=== PATIENT | male | born 1950 | race Caucasian/White ===

== ENCOUNTER 2019-07-18 11:18 | Inpatient (IN) | payer OTHER ==
[2019-07-18] MEDS ORDERED: ACETAMINOPHEN 1000 MG/100 ML VIAL (NON FORMULARY) IVPB ONE (12:32)
[2019-07-18] MEDS ORDERED: SODIUM CHLORIDE 0.9% 500 ML INFUS.BAG IV ONE ×5 (12:32→18:07)
[2019-07-18] MEDS ORDERED: ONDANSETRON 4 MG/2 ML VIAL IVPUSH ONE (12:32)
--- NOTE | 2019-07-18 12:44 | PDOC ---
History of Present Illness - General Chief Complaint: Constipation Stated Complaint: NO BOWEL MOVEMENT Time Seen by Provider: 07/18/19 12:12 Past History - Past Medical History Allergies/Adverse Reactions: Allergies Allergy/AdvReac Type Severity Reaction Status Date / Time No Known Allergies Allergy Verified 07/18/19 11:20 Home Medications: Ambulatory Orders Atorvastatin Ca [Lipitor] 10 mg PO HS 07/18/19 Enalapril Maleate 2.5 mg PO DAILY 07/18/19 Gemfibrozil [Lopid] 600 mg PO DAILY 07/18/19 Glipizide [Glipizide Xl] 5 mg PO DAILY 07/18/19 Pantoprazole Sodium 40 mg PO DAILY 07/18/19 Anemia: No Asthma: No Cancer: No Cardiac Disorders: No CVA: No COPD: No CHF: No Dementia: No Diabetes: Yes (BORDERLINE) GI Disorders: Yes (PEPTIC ULCER DISEASE) Disorders: No HTN: No Hypercholesterolemia: Yes Liver Disease: No Seizures: No Thyroid Disease: No - Surgical History Abdominal Surgery: No Appendectomy: Yes Cardiac Surgery: No Cholecystectomy: No Lung Surgery: No Neurologic Surgery: No Orthopedic Surgery: No - Immunization History Immunization Up to Date: Yes - Psycho Social/Smoking Cessation Hx Smoking History: Current every day smoker Number of Cigarettes Smoked Daily: 10 Information on smoking cessation initiated: No Hx Alcohol Use: No Drug/Substance Use Hx: Yes (MARIJUANA) Substance Use Type: None Hx Substance Use Treatment: No *Physical Exam - Vital Signs Last Vital Signs Temp Pulse Resp BP Pulse Ox 97.3 F L 110 H 18 133/85 97 07/18/19 11:21 07/18/19 11:21 07/18/19 11:21 07/18/19 11:21 07/18/19 11:21 ED Treatment Course - LABORATORY CBC & Chemistry Diagram: 07/18/19 12:54 07/18/19 12:54 - RADIOLOGY Radiology Studies Ordered: Category Date Time Status ABDOMEN & PELVIS CT WITH CONTR [CT] Stat CT Scan 07/18/19 12:33 Ordered CHEST PA & LAT [RAD] Stat Radiology 07/18/19 12:37 Ordered Medical Decision Making - Medical Decision Making 07/18/19 12:42 HPI: 69yo M hx T2DM on glipizide (noncompliant for months), ulcers s/p multiple surgeries, smoker, skin CA, s/p appendectomy sent by PCP Dr. Irene Husain to r/ o SBO. Pt c/o 1 year of fatigue and 30lb unintentional weight loss and 3 days of constipation and decreased passage of flatulence, nausea, NBNB emesis, worsening fatigue, chills, diaphoresis, slight dysuria, and periumbilical abdominal pain. LBM 3 days ago, usual BMs 1x/wk, endorses decreased flatulence. Daily 3-4x/day NBNB emesis x3 days. Periumbilical abdominal pain x3 days constant gradual onset worse when burps not similar to ulcers no improvement with OTC chalky medication for stomach. Last went to doctor in 2017, noncompliant with medications. Denies CAD/ACS/SC, sick contacts, recent travel, recent illness. PCP - Ezio Husain ROS: Constitutional: Positive for chills, fatigue, diaphoresis, weight loss. Negative for fever. HENT: Negative for sore throat, rhinorrhea, congestion. Eyes: Negative for visual disturbance. Respiratory: Negative for shortness of breath, cough, and wheezing. Cardiovascular: Negative for chest pain, palpitations, and leg swelling. Gastrointestinal: Positive for abdominal pain, constipation, nausea, and vomiting. Negative for blood in stool, constipation, nausea, and vomiting. Genitourinary: Positive for dysuria. Negative for flank pain, and hematuria. Musculoskeletal: Negative for myalgias, back pain, and neck pain. Skin: Negative for rash. Neurological: Negative for light-headedness, dizziness, vertigo, syncope, weakness, numbness and headaches. Psychiatric/Behavioral: Negative for behavioral problems and confusion. PE: Gen: Alert, NAD, tired- and uncomfortable-appearing, thin HEENT: PERRL, EOMI, MMM, NCAT. No conjunctival pallor. Sclera are non-icteric. CV: Tachycardic rate and regular rhythm. No murmurs, rubs, or gallops. PULM: No resp distress. CTAB, no wheezes, rales, or rhonchi. ABD: slight periumbilical TTP, soft, ND, no rebound tenderness or guarding, no CVA tenderness. BACK: No TTP of c/t/l-spine. No step-offs or deformities. MSK: No bony deformities. 2+ pulses in all extremities. NEURO: AAOx3. PERRL. No gross CN deficits. Strength and sensation grossly intact throughout. EXTREMITIES: No cyanosis. No clubbing. No edema. No calf tenderness. PSYCH: Normal mood and thought pattern. SKIN: Warm and dry. Normal capillary refill. No rashes. No jaundice. MDM: 69yo M hx T2DM on glipizide (noncompliant for months), ulcers s/p multiple surgeries, s/p appendectomy presents with 1 year of fatigue and 30lb weight loss and 3 days of constipation and decreased passage of flatulence, nausea, NBNB emesis, worsening fatigue, chills, diaphoresis, and periumbilical abdominal pain; sent by PCP Dr. Irene Husain to r/o SBO. VS reviewed, tachycardic, afebrile, normotensive, slight periumbilical TTP on exam but non-acute abdomen. Ddx: SBO, pancreatitis, GERD, gastritis, perforated ulcer, colitis, malignancy, metabolic derangement, anemia, infectious etiology, low concern for cardiac pathology (no CP, SOB, hx ACS/SC) -EKG -CXR -CTAP w/IV and oral contrast -Rectal temp -CBC,CMP,Lipase,Coags,T&S,Cardiac profile,Mg,Phos,Lact,UA/UC -IVF, Zofran, Tylenol -Dispo: pending w/u 07/18/19 13:25 Oral contrast started at 1300. WBC 16.8, now meets sepsis criteria - add BCx and VBG 07/18/19 13:51 Lact 2.6 - severe sepsis. Additional fluids, Vanc, Zosyn. EKG reviewed. NSR, 91bpm, normal intervals, no TWIs, no ST elevations or depressions, no peaked T waves 07/18/19 14:17 Labs reviewed. Of note, Na 124, K 6.3, AG 20, BUN 44, Cr 1.9, glucose 610, lact 2.6, Mg 3.1/ UA: 3+ glucose, 3+ ketones, no signs of infection Insulin 7units IV, albuterol neb for hyperkalemia 6.3 (but most likely due to shift from hyperglycemia). 07/18/19 15:33 VBG: pH 7.26, pCO2 27.3, pO2 <49, HCO3 11.8, BE -13.9 Beta-hydroxybutarate >46. Finger stick then start insulin drip at 7 units/hr. Check BMP for K. 07/18/19 15:[address] scan. Changed to no IV contrast due to renal labs. 07/18/19 16:36 Finger stick 455 07/18/19 16:37 Called XR for CXR. 07/18/19 17:31 CXR reviewed - no acute pathology 07/18/19 17:58 CT read: in comparison to 2013 CT exam apparent interval development of mild concentric wall thickening of partially imaged lower third of thoracic esophagus - ?possible esophagitis. If clinically indicated correlate with endoscopy or barium radiography. No CT evidence of bowl obstruction. Moderate colonic fecal retention. Cholelithiasis. Interval mildly increased L adrenal gland thickening probably representing hyperplasia vs subcentimeter adenomas. Biochemical eval suggested as well as 3 month f/u CT or MRI to document stability. Urinary bladder appears mildly overdistended (current volume 500mL) - ?physiologic finding vs mild/early retention. Correlate clinically. As on prior study osseous structures appear diffusely demineralized. ICU called for admission. Will come see pt. 07/18/19 18:23 ICU saw pt and accepted. Signed out to admitting team. Discharge - Discharge Information Problems reviewed: Yes Clinical Impression/Diagnosis: DKA (diabetic ketoacidoses) Condition: Stable - Admission Yes - Follow up/Referral Referrals: Irene Husain MD [Primary Care Provider] - - Patient Discharge Instructions - Post Discharge Activity
[2019-07-18] MEDS ORDERED: ACETAMINOPHEN INJECTION 100 ML IVPB ONE (13:06)
[2019-07-18] MEDS ORDERED: ONDANSETRON 4 MG/2 ML VIAL ONE (13:06)
[2019-07-18 13:10] LABS: BASO % 0.7 % (0-2.0); HEMATOCRIT 51.7 % (35.4-49); HEMOGLOBIN 16.7 GM/dL (11.7-16.9); MCHC 32.3 g/dl (32.0-35.9); MEAN PLT VOLUME 10.1 fl (7.5-11.1); MONO % 9.1 % (3.8-10.2); NEUT % 82.2 % (42.8-82.8); PLATELET COUNT 251 K/MM3 (134-434); RBC 5.38 M/mm3 (4.00-5.60); WHITE BLOOD COUNT 16.8 K/mm3 (4.0-10.0)
[2019-07-18 13:22] LABS: INR 0.91 (0.83-1.09); PROTHROMBIN TIME (PATIENT) 10.7 SEC (9.7-13.0)
[2019-07-18 13:25] LABS: ACTIVATED PTT 25.8 SECONDS (25.2-36.5)
[2019-07-18 13:35] LABS: MAGNESIUM 3.1 mg/dL (1.8-2.4); PHOSPHOROUS 4.7 mg/dL (2.5-4.9)
[2019-07-18] MEDS ORDERED: VANCOMYCIN 1 GM in D5W (PRE-DOCKED) 1,000 MG/250 ML IVPB ONE (13:48)
[2019-07-18] MEDS ORDERED: PIPERACILLIN/TAZOB 3.375 GM 3.375 GM in DEXTROSE 5%-WATER - 50 ML IVPB ONE (13:48)
--- NOTE | 2019-07-18 13:52 | PDOC ---
Documentation entered by Marti Meza SCRIBE, acting as scribe for Pollo Gabriel MD. Pollo Gabriel MD: This documentation has been prepared by the Susana roman Adrianna, SCRIBE, under my direction and personally reviewed by me in its entirety. I confirm that the documentation accurately reflects all work, treatment, procedures, and medical decision making performed by me. Attending Attestation - Resident Resident Name: ElzaedwigeSheryl - ED Attending Attestation I have performed the following: I have examined & evaluated the patient, The case was reviewed & discussed with the resident, I agree w/resident's findings & plan, Exceptions are as noted - HPI HPI: The patient is a 69 year old male, with a significant PMH of chronic constipation, DM, peptic ulcer diseases sp laparopomy, and HLD, who presents to the ED for evaluation of abdominal pain for 3 days. Patient complains of sudden onset periumbilical abdominal pain, that is continuous but differs in intensity throughout the day. He reports associated nausea and 4 episodes of NBNB vomit 2 days agp, but denies any nausea or vomit today. His LBM was 3 days ago, and he has not felt the need to go at this time. He reports some sweats and chills while in the ED. Patient otherwise denies any acute complaints icluding cp, sob, back pain, diarrhea/melena/bpr. Allergies: NKA, NKDA Surgical History: Appendectomy, laparotomy Social History: Current everyday smoker (1/2 ppd). Marijuana use. PCP: Dr. Husain - Physicial Exam PE: 07/18/19 13:39 GENERAL: The patient is awake, alert, and fully oriented, Nontoxic - in no acute distress. HEAD: Normocephalic, atraumatic. EYES: extraocular movements intact, sclera anicteric, conjunctiva clear. ENT: Normal voice, Moist mucous membranes. NECK: Normal range of motion, supple LUNGS: Breath sounds equal, clear to auscultation bilaterally. No wheezes, no rhonchi, no rales. HEART: slightly tachcyardic ABDOMEN: Soft, nontender, No guarding, no rebound. No CVA tenderness EXTREMITIES: Normal range of motion, no edema. NEUROLOGICAL: No facial assymetry, Normal speech, PSYCH: Normal mood, normal affect. SKIN: Warm, Dry, normal turgor, - Critical Care Time Total Critical Care Time: 35 Critical Care Statement: The care of this patient involved high complexity decision making to prevent further life threatening deterioration of the patient 's condition and/or to evaluate & treat vital organ system(s) failure or risk of failure. - Medical Decision Making 07/18/19 13:18 69y M hx of sp chronic constipation, DM, peptic ulcer disease sp exlap, and HLD presents with compmlaint of n/v, constipation, mid abdominal pain for the past 3 days. pt endorses some chills yetseday. no cp, back pain, minimal abd pain currently vital snoted fo rmild tachycardia will obtain lbs, ct abd will reassess 07/18/19 14:31 Patient's labs were reviewed noted for LOREN as well as likely DKA as the patient is noted to be have a low serum bicarb as well as with elevated glucose. Suspect patient has hyponatremia secondary to hyperglycemia. Patient potassium is also elevated We will treat the patient for his hyperkalemia as well as insulin for his suspected DKA and fluids for hydration Awaiting CT abdomen 07/18/19 16:31 pts labs noted for DKA started in insulin gtt and will admit to the ICU pt given some K shifters, suspect his K will come down with hydration and control of his DKA no signs of peaked t waves will continue to monitor closely Heart Score/ECG Review - ECG Impressions Comment:: 07/18/19 14:39 Twelve-lead EKG was performed and reviewed by me. There is normal sinus rhythm with a normal rate. Rate of 91 The axis is normal. The intervals are normal. There is normal R wave progression There are no ST or T wave abnormalities. Impression: Normal twelve-lead EKG
[2019-07-18 14:00] LABS: BILIRUBIN,TOTAL 0.7 mg/dL (0.2-1); CALCIUM 9.2 mg/dL (8.5-10.1); CREATININE 1.9 mg/dL (0.55-1.3); TOT PROT 7.8 g/dl (6.4-8.2)
[2019-07-18 14:04] LABS: POTASSIUM 6.3 mmol/L (3.5-5.1)
[2019-07-18] MEDS ORDERED: VANCOMYCIN 1 GRAM (PRE-DOCKED) 1,000 MG/250 ML BAG IVPB ONE (14:09)
[2019-07-18] MEDS ORDERED: PIPERACILLIN/TAZOB 3.375 GM 3.375 GM/50 ML BAG IVPB ONE (14:09)
[2019-07-18] MEDS ORDERED: INSULIN REGULAR HUMAN 100 UNITS/ML *VIAL IVPUSH ONE (14:13)
[2019-07-18] MEDS ORDERED: ALBUTEROL SO4 0.083% IH SOL 2.5 MG/3 ML VIAL.NEB. NEB ONE (14:17)
[2019-07-18 14:46] LABS: VENOUS PC02 27.3 mmHg (38-52); VENOUS PH 7.26 (7.31-7.41)
[2019-07-18 14:50] LABS: VENOUS PO2 < 49 mmHg (28-48)
[2019-07-18 15:10] LABS: EPI CELLS 0.4 /HPF (0-5/HPF); HYALINE CASTS 1 /lpf (0-8); URINE APPEARANCE CLEAR; URINE BACTERIA 6.9 /hpf (NEGATIVE); URINE BILIRUBIN NEGATIVE (NEGATIVE); URINE COLOR YELLOW; URINE GLUCOSE (UA) 3+ (NEGATIVE); URINE KETONE 3+ (NEGATIVE); URINE LEUK ESTERASE NEGATIVE (NEGATIVE); URINE NITRITE NEGATIVE (NEGATIVE); URINE PROTEIN TRACE (NEGATIVE); URINE RBC 1 /hpf (0-4); URINE UROBILINOGEN 0.2 mg/dL (0.2-1.0); URINE WBC 0 /hpf (0-5)
[2019-07-18] MEDS ORDERED: INSULIN REGULAR 100 UNITS in SODIUM CHLORIDE 99 ML IVPB SCH (15:30)
[2019-07-18 18:08] LABS: BLOOD UREA NITROGEN 37.4 mg/dL (7-18); CALCIUM 7.9 mg/dL (8.5-10.1); CREATININE 1.5 mg/dL (0.55-1.3); POTASSIUM 4.6 mmol/L (3.5-5.1)
--- NOTE | 2019-07-18 18:31 | CONSULT ---
Consultation: Informed by Rachid Tinoco regarding patient's placement in ICU. Noted and will place on medicine service. <Josias Groves - Last Filed: 07/19/19 03:55> Consultation: REQUESTING PROVIDER: ED CONSULT REQUEST: We have been asked to medically evaluate this patient for ( Diabetic Ketoacidosis). HISTORY OF PRESENT ILLNESS: Pt is a 69 y/o M with a significant past medical history of NIDDM, peptic ulcer disease s/p laparotomy, and skin CA who presented to [facility] due to 4 days of vomiting, nausea, constipation, fatigue, chills, and abdominal pain. Pt was sent to our ED by PCP for suspected SBO. Pt endorses his symptoms began abruptly with no identifiable inciting event. Endorses LBM was 3 days ago. OTC anti-acid medications have provided no relief of symptoms. Denies chest pain or shortness of breath. Pt is on oral hypoglycemic however is non-compliant with medication. SocialHx- Smokes 6-7 Cigarettes/day, smokes marijuana, Denies alcohol use. SurgHx- Open Duodenal Ulcer repair in s NKDA REVIEW OF SYSTEMS: CONSTITUTIONAL: Absent: fever, chills, diaphoresis, generalized weakness, malaise, loss of appetite, weight change HEENT: Absent: rhinorrhea, nasal congestion, throat pain, throat swelling, difficulty swallowing, mouth swelling, ear pain, eye pain, visual changes CARDIOVASCULAR: Absent: chest pain, syncope, palpitations, irregular heart rate, lightheadedness , peripheral edema RESPIRATORY: Absent: cough, shortness of breath, dyspnea with exertion, orthopnea, wheezing, stridor, hemoptysis GASTROINTESTINAL: PRESENT: abdominal pain, nausea, vomiting GENITOURINARY: Absent: dysuria, frequency, urgency, hesitancy, hematuria, flank pain, genital pain MUSCULOSKELETAL: Absent: myalgia, arthralgia, joint swelling, back pain, neck pain SKIN: Absent: rash, itching, pallor HEMATOLOGIC/IMMUNOLOGIC: Absent: easy bleeding, easy bruising, lymphadenopathy, frequent infections ENDOCRINE: Absent: unexplained weight gain, unexplained weight loss, heat intolerance, cold intolerance NEUROLOGIC: Absent: headache, focal weakness or paresthesias, dizziness, unsteady gait, seizure, mental status changes, bladder or bowel incontinence PSYCHIATRIC: Absent: anxiety, depression, suicidal or homicidal ideation, hallucinations. PHYSICAL EXAMINATION Vital Signs - 24 hr 07/18/19 11:21 Temperature 97.3 F L Pulse Rate 110 H Respiratory 18 Rate Blood Pressure 133/85 O2 Sat by Pulse 97 Oximetry (%) GENERAL: Somnolent HEAD: Normal with no signs of trauma. EYES: EOMI Sclera Clear EARS, NOSE, THROAT: Dry mucous membranes NECK: Supple LUNGS: CTAB HEART: RRR S1S2 ABDOMEN: Nontender to palpation. Soft Nondistended. Surgical scar lower mid abdomen LOWER EXTREMITIES: No clubbing, cyanosis, or edema NEUROLOGICAL: Cranial nerves II-XII intact. Normal speech. PSYCHIATRIC: Cooperative. Good eye contact. Appropriate mood and affect. Laboratory Results - last 24 hr 07/18/19 07/18/19 07/18/19 12:54 12:54 12:54 WBC 16.8 H RBC 5.38 Hgb 16.7 Hct 51.7 H D MCV 96.0 MCH 31.0 MCHC 32.3 RDW 14.0 Plt Count 251 D MPV 10.1 Absolute Neuts (auto) 13.8 H Neutrophils % 82.2 Lymphocytes % 8.0 D Monocytes % 9.1 Eosinophils % 0.0 D Basophils % 0.7 Nucleated RBC % 0 PT with INR 10.70 INR 0.91 PTT (Actin FS) 25.8 VBG pH POC VBG pCO2 POC VBG pO2 VBG HCO3 VBG O2 Sat (Jeannine) VBG Base Excess Sodium Potassium Chloride Carbon Dioxide Anion Gap BUN Creatinine Est GFR (CKD-EPI)AfAm Est GFR (CKD-EPI)NonAf POC Glucometer Random Glucose Lactic Acid Calcium Phosphorus Magnesium Total Bilirubin AST ALT Alkaline Phosphatase Creatine Kinase 57 Troponin I < 0.02 Total Protein Albumin Lipase Beta-Hydroxybutyrate Urine Color Urine Appearance Urine pH Ur Specific [place] Urine Protein Urine Glucose (UA) Urine Ketones Urine Blood Urine Nitrite Urine Bilirubin Urine Urobilinogen Ur Leukocyte Esterase Urine WBC (Auto) Urine RBC (Auto) Urine Casts (Auto) U Epithel Cells (Auto) Urine Bacteria (Auto) Blood Type Antibody Screen 07/18/19 07/18/19 07/18/19 12:54 12:54 12:54 WBC RBC Hgb Hct MCV MCH MCHC RDW Plt Count MPV Absolute Neuts (auto) Neutrophils % Lymphocytes % Monocytes % Eosinophils % Basophils % Nucleated RBC % PT with INR INR PTT (Actin FS) VBG pH POC VBG pCO2 POC VBG pO2 VBG HCO3 VBG O2 Sat (Jeannine) VBG Base Excess Sodium 124 L Potassium 6.3 H* Chloride 93 L Carbon Dioxide 11 L Anion Gap 20 H BUN 44.0 H Creatinine 1.9 H Est GFR (CKD-EPI)AfAm 40.78 Est GFR (CKD-EPI)NonAf 35.19 POC Glucometer Random Glucose 610 H* Lactic Acid 2.6 H* Calcium 9.2 Phosphorus Magnesium Total Bilirubin 0.7 AST 10 L ALT 23 Alkaline Phosphatase 105 Creatine Kinase Troponin I Total Protein 7.8 Albumin 4.0 Lipase Beta-Hydroxybutyrate Urine Color Urine Appearance Urine pH Ur Specific [place] Urine Protein Urine Glucose (UA) Urine Ketones Urine Blood Urine Nitrite Urine Bilirubin Urine Urobilinogen Ur Leukocyte Esterase Urine WBC (Auto) Urine RBC (Auto) Urine Casts (Auto) U Epithel Cells (Auto) Urine Bacteria (Auto) Blood Type O POSITIVE Antibody Screen Negative 07/18/19 07/18/19 07/18/19 12:54 12:54 14:15 WBC RBC Hgb Hct MCV MCH MCHC RDW Plt Count MPV Absolute Neuts (auto) Neutrophils % Lymphocytes % Monocytes % Eosinophils % Basophils % Nucleated RBC % PT with INR INR PTT (Actin FS) VBG pH 7.26 L POC VBG pCO2 27.3 L POC VBG pO2 < 49 H VBG HCO3 11.8 L VBG O2 Sat (Jeannine) 71.7 VBG Base Excess -13.9 L Sodium Potassium Chloride Carbon Dioxide Anion Gap BUN Creatinine Est GFR (CKD-EPI)AfAm Est GFR (CKD-EPI)NonAf POC Glucometer Random Glucose Lactic Acid Calcium Phosphorus 4.7 Magnesium 3.1 H Total Bilirubin AST ALT Alkaline Phosphatase Creatine Kinase Troponin I Total Protein Albumin Lipase 311 Beta-Hydroxybutyrate Urine Color Urine Appearance Urine pH Ur Specific [place] Urine Protein Urine Glucose (UA) Urine Ketones Urine Blood Urine Nitrite Urine Bilirubin Urine Urobilinogen Ur Leukocyte Esterase Urine WBC (Auto) Urine RBC (Auto) Urine Casts (Auto) U Epithel Cells (Auto) Urine Bacteria (Auto) Blood Type Antibody Screen 07/18/19 07/18/19 07/18/19 14:15 14:45 16:35 WBC RBC Hgb Hct MCV MCH MCHC RDW Plt Count MPV Absolute Neuts (auto) Neutrophils % Lymphocytes % Monocytes % Eosinophils % Basophils % Nucleated RBC % PT with INR INR PTT (Actin FS) VBG pH POC VBG pCO2 POC VBG pO2 VBG HCO3 VBG O2 Sat (Jeannine) VBG Base Excess Sodium Potassium Chloride Carbon Dioxide Anion Gap BUN Creatinine Est GFR (CKD-EPI)AfAm Est GFR (CKD-EPI)NonAf POC Glucometer 455 Random Glucose Lactic Acid Calcium Phosphorus Magnesium Total Bilirubin AST ALT Alkaline Phosphatase Creatine Kinase Troponin I Total Protein Albumin Lipase Beta-Hydroxybutyrate > 46.0 H Urine Color Yellow Urine Appearance Clear Urine pH 5.0 Ur Specific [place] 1.030 Urine Protein Trace Urine Glucose (UA) 3+ H Urine Ketones 3+ H Urine Blood Trace Urine Nitrite Negative Urine Bilirubin Negative Urine Urobilinogen 0.2 Ur Leukocyte Esterase Negative Urine WBC (Auto) 0 Urine RBC (Auto) 1 Urine Casts (Auto) 1 U Epithel Cells (Auto) 0.4 Urine Bacteria (Auto) 6.9 Blood Type Antibody Screen Active Medications Generic Name Dose Route Start Last Admin Trade Name Freq PRN Reason Stop Dose Admin Insulin Human Regular 100 100 mls @ 7 mls/hr 07/18/19 15:30 units/ Sodium Chloride IVPB TITR GUERRERO Protocol 7 UNITS/HR CT read: in comparison to 2013 CT exam apparent interval development of mild concentric wall thickening of partially imaged lower third of thoracic esophagus - ?possible esophagitis. If clinically indicated correlate with endoscopy or barium radiography. No CT evidence of bowl obstruction. Moderate colonic fecal retention. Cholelithiasis. Interval mildly increased L adrenal gland thickening probably representing hyperplasia vs subcentimeter adenomas. Biochemical eval suggested as well as 3 month f/u CT or MRI to document stability. Urinary bladder appears mildly overdistended (current volume 500mL) - ?physiologic finding vs mild/early retention. Correlate clinically. As on prior study osseous structures appear diffusely demineralized. EKG-> NSR, 91bpm, normal intervals, no TWIs, no ST elevations or depressions, no peaked T waves ASSESSMENT/PLAN: Pt is a 69 y/o M with a significant past medical history of NIDDM, peptic ulcer disease s/p laparotomy, and skin CA who presented to [facility] due to 4 days of vomiting, nausea, constipation, fatigue, chills, and abdominal pain. #Diabetic Ketoacidosis -VBH PH 7.26, CO2 11, B Hydroxybutyrate >46, random glucose 610, Lactic acid 2.6 -Potassium 6.3, Insulin gtt started. NS bolus given 500cc. Repeat K+ 4.6, will administer NS w/ 20 Meq KCL. -BMP Q2H -BGM Q1H -Will switch IV fluid to D5 1/2 NS when BGM < 250. Will bridge insulin gtt with SQ insulin once anion gap closed and ketosis resolved. -CTAP--> No SBO. Possible esophagitis. -GI Consulted #FEN NS w/ 20 mEQ KCL Monitor Electrolytes NPO #DVT ppx: Heparin SC TID Dispo: We will continue to follow the patient. Thank you for this consultative opportunity. <Sergio Rashid - Last Filed: 07/20/19 12:32> Visit type - Emergency Visit Emergency Visit: Yes ED Registration Date: 07/18/19 Care time: The patient presented to the Emergency Department on the above date and was hospitalized for further evaluation of their emergent condition. - New Patient This patient is new to me today: Yes Date on this admission: 07/18/19 - Critical Care Critical Care patient: Yes Total Critical Care Time (in minutes): 35 Critical Care Statement: The care of this patient involved high complexity decision making to prevent further life threatening deterioration of the patient 's condition and/or to evaluate & treat vital organ system(s) failure or risk of failure. <Sergio Rashid - Last Filed: 07/20/19 12:32> ATTENDING PHYSICIAN STATEMENT I saw and evaluated the patient. I reviewed the resident's note and discussed the case with the resident. I agree with the resident's findings and plan as documented. SUBJECTIVE: OBJECTIVE: ASSESSMENT AND PLAN: <Josias Groves - Last Filed: 07/19/19 03:55> ATTENDING PHYSICIAN STATEMENT I saw and evaluated the patient. I reviewed the resident's note and discussed the case with the resident. I agree with the resident's findings and plan as documented. SUBJECTIVE: OBJECTIVE: ASSESSMENT AND PLAN: <Sergio Rashid - Last Filed: 07/20/19 12:32>
[2019-07-18] MEDS ORDERED: SODIUM CHLORIDE 0.9%/KCL 20 MEQ/1,000 ML INFUS.BAG IV SCH (19:15)
[2019-07-19] MEDS: MUPIROCIN 2% TOPICAL OINTMENT FOR DECOLONIZATION NS SCH ×3 (00:30→23:24)
[2019-07-19 01:00] VITALS: BMI 21.7
[2019-07-19] MEDS ORDERED: PANTOPRAZOLE 40 MG TABLET (FP) PO ONE (02:12)
[2019-07-19] MEDS ORDERED: DEXTROSE 5%-0.45% SALINE 1,000 ML IV SCH ×2 (02:45→17:30)
[2019-07-19 03:38] LABS: BLOOD UREA NITROGEN 23.9 mg/dL (7-18); CALCIUM 7.9 mg/dL (8.5-10.1); CREATININE 1.2 mg/dL (0.55-1.3); POTASSIUM 4.2 mmol/L (3.5-5.1)
[2019-07-19] MEDS ORDERED: D5-1/2NS+20 MEQ KCL - 20 MEQ/1,000 ML INFUS.BAG IV SCH (04:30)
[2019-07-19] MEDS ORDERED: INSULIN (LEVEMIR) 100 UNITS/ML UNITS SQ ONE (06:39)
[2019-07-19] MEDS ORDERED: INSULIN SLIDING SCALE (NOVOLOG) 1 VIAL SQ SCH (07:00)
[2019-07-19 07:54] LABS: BASO % 0.3 % (0-2.0); HEMATOCRIT 37.9 % (35.4-49); HEMOGLOBIN 13.1 GM/dL (11.7-16.9); MCH 31.6 pg (25.7-33.7); MCHC 34.5 g/dl (32.0-35.9); MEAN CELL VOLUME 91.5 fl (80-96); MEAN PLT VOLUME 9.2 fl (7.5-11.1); MONO % 10.7 % (3.8-10.2); PLATELET COUNT 174 K/MM3 (134-434); RBC 4.14 M/mm3 (4.00-5.60); RDW 13.6 % (11.9-15.9); WHITE BLOOD COUNT 12.4 K/mm3 (4.0-10.0)
[2019-07-19 08:06] LABS: INR 0.92 (0.83-1.09); PROTHROMBIN TIME (PATIENT) 10.9 SEC (9.7-13.0)
[2019-07-19 08:08] LABS: ACTIVATED PTT 26.6 SECONDS (25.2-36.5)
[2019-07-19 08:09] LABS: BLOOD UREA NITROGEN 19.9 mg/dL (7-18); CALCIUM 7.8 mg/dL (8.5-10.1); CREATININE 1.1 mg/dL (0.55-1.3); MAGNESIUM 2.3 mg/dL (1.8-2.4); PHOSPHOROUS 2.1 mg/dL (2.5-4.9); POTASSIUM 4.4 mmol/L (3.5-5.1)
[2019-07-19] MEDS: SENNOSIDES 8.6MG TABLET (FP) PO SCH ×2 (09:25→23:25)
[2019-07-19] MEDS ORDERED: INSULIN REGULAR 100 UNITS in SODIUM CHLORIDE 99 ML IVPB SCH ×2 (09:37→09:45)
--- NOTE | 2019-07-19 09:58 | CON.GI ---
Consult Consult Specialty:: GI: For Dr. Holley Referred by:: Dr. Irene Husain Reason for Consultation:: Esophagitits on CT scan - History of Present Illness Chief Complaint: Nausea, vomiting, abdominal pain History of Present Illness: 69M admitted through [facility] for N/V abdominal pain. Noted to be in DKA. Admitted to ICU. Has not been taking diabetic meds "for weeks" per the patient because he ran out. CT scan revealed thickening of the distal third of his esophagus and question of urinary retention. He was vomiting intermittently over the last 2 days. His last colonoscopy was in [address] Wendy Holley ( for polyp surveillance). It led to the removal of hyperplastic rectal polyps. He denies chronic reflux, family history of esophageal cancer or combs's esophagus. He denies heavy alcohol consumption. One of his brothers has metastatic colon cancer. There is no associated dysphagia, odynophaghia and does describe some reflux symptoms currently. 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 Father: 95. 7 brothers: 1 with colon cancer. 2 sisters: Healthy. 1 son: healthy. No family history of esophageal cancer, combs's esophagus Review of Systems - Review of Systems Constitutional: reports: Weakness. denies: Chills HENT: denies: Difficult Swallowing Cardiovascular: denies: Chest Pain Respiratory: denies: Cough, SOB Gastrointestinal: reports: Abdominal Pain, Nausea, Vomiting. denies: Diarrhea, Melena, Rectal Bleeding, Vomiting Blood Physical Exam-GI Vital Signs: Vital Signs Temperature 99.1 F 07/19/19 00:32 Pulse Rate 76 07/19/19 07:00 Respiratory Rate 18 07/19/19 07:00 Blood Pressure 106/62 07/19/19 07:00 O2 Sat by Pulse Oximetry (%) 95 07/19/19 00:32 Constitutional: Yes: Calm Eyes: No: Sclera Icterus HENT: Yes: Other (No oropharyngeal thrush) Cardiovascular: Yes: Regular Rate and Rhythm Respiratory: Yes: CTA Bilaterally Gastrointestinal Inspection: No: Distention ...Auscultate: Yes: Normoactive Bowel Sounds ...Palpate: Yes: Soft. No: Hepatomegaly, Splenomegaly, Tenderness ...Percussion: No: Tympanitic Edema: No (No LE edema) Neurological: Yes: Alert Labs: CBC, BMP 07/19/19 07:05 07/19/19 07:05 INR, PTT INR 0.92 (0.83-1.09) 07/19/19 07:05 Hepatic Panel Total Bilirubin 0.7 mg/dL (0.2-1) 07/18/19 12:54 AST 10 U/L (15-37) L 07/18/19 12:54 ALT 23 U/L (13-61) 07/18/19 12:54 Alkaline Phosphatase 105 U/L (45-117) 07/18/19 12:54 Albumin 4.0 g/dl (3.4-5.0) 07/18/19 12:54 Imaging - Results Cat Scan: Report Reviewed, Image Reviewed Problem List - Problems (1) Esophagitis Assessment/Plan: Thickening of distal third of esophagus noted on recent CT scan likely reflecting esophagitis precipitated by his multiple vomiting episodes over the last couple of days. No dysphagia / odynophagia and no oropharyngeal candidiasis noted on exam. Protonix 40mg once daily Will need follow-up endoscopy as outpatient once acute issues are resolved Will need surveillance colonoscopy as outpatient given history of colon polyps and family history of colon cancer The above explained to Mr. Melissa Holley resumes care 07/21/19 Code(s): K20.9 - ESOPHAGITIS, UNSPECIFIED
--- NOTE | 2019-07-19 10:27 | HP ---
Admitting History and Physical - Primary Care Physician PCP: Evette Graham - Admission History of Present Illness: pt seen/ examined chart reviewed Was send to er from office by my colleague Dr. Husain as below pt did not come to office for almost 2 years. In summary Pt is a 69 y/o M with a significant past medical history of NIDDM, peptic ulcer disease s/p laparotomy, and skin CA who send to [facility] due to 4 days of vomiting, nausea, constipation, fatigue, chills, and abdominal pain. Pt found in dka Started on insulin drip/ fluids/ admitted to icu also given abx emperically as wbc were elevated cxr -ve ct scan - abd - no acute pathology-- ? adrenal Adenoma Pt seen/ examined in ICU awake weak says little better afebrile denies pain Chronic ill appearance Pt says for last 2 years mostly stayed home bound On further questioning-- says has one son who lives in [place] a nd brought here by friend says there is no one around from his family History Source: Patient Limitations to Obtaining History: No Limitations - Past Medical History Cardiovascular: Yes: HTN, Hyperlipdemia Gastrointestinal: Yes: Peptic Ulcer Disease Endocrine: Yes: Diabetes Mellitus Dermatology: Yes: Melanoma - Smoking History Smoking history: Current every day smoker Have you smoked in the past 12 months: Yes Aproximately how many cigarettes per day: 7 - Alcohol/Substance Use Hx Alcohol Use: No History of Substance Use: reports: Marijuana - Social History ADL: Independent 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 History of Recent Travel: No Home Medications - Allergies Allergies/Adverse Reactions: Allergies Allergy/AdvReac Type Severity Reaction Status Date / Time No Known Allergies Allergy Verified 07/18/19 11:20 - Home Medications Home Medications: Ambulatory Orders Atorvastatin Ca [Lipitor] 10 mg PO HS 07/18/19 Enalapril Maleate 2.5 mg PO DAILY 07/18/19 Gemfibrozil [Lopid] 600 mg PO DAILY 07/18/19 Glipizide [Glipizide Xl] 5 mg PO DAILY 07/18/19 Pantoprazole Sodium 40 mg PO DAILY 07/18/19 Review of Systems Findings/Remarks: see curyung Physical Examination Vital Signs: Vital Signs Temperature 99.1 F 07/19/19 00:32 Pulse Rate 76 07/19/19 07:00 Respiratory Rate 18 07/19/19 07:00 Blood Pressure 106/62 07/19/19 07:00 O2 Sat by Pulse Oximetry (%) 95 07/19/19 00:32 Constitutional: Yes: Calm, Mild Distress Eyes: Yes: Conjunctiva Clear HENT: Yes: Other (dry) Neck: Yes: Supple Cardiovascular: Yes: Regular Rate and Rhythm Respiratory: Yes: CTA Bilaterally Gastrointestinal: Yes: Normal Bowel Sounds, Soft Edema: No Neurological: Yes: Alert Psychiatric: Yes: Alert Labs: CBC, BMP 07/19/19 07:05 07/19/19 07:05 Imaging - Results Chest X-ray: Report Reviewed Cat Scan: Report Reviewed Problem List - Problems (1) Mood disorder Code(s): F39 - UNSPECIFIED MOOD [AFFECTIVE] DISORDER (2) DKA (diabetic ketoacidoses) Code(s): E11.10 - TYPE 2 DIABETES MELLITUS WITH KETOACIDOSIS WITHOUT COMA (3) Adrenal adenoma Code(s): D35.00 - BENIGN NEOPLASM OF UNSPECIFIED ADRENAL GLAND Assessment/Plan Monitor in icu Fluids Insulin drip HbA1c >14 !! f/u electrolytes/ labs gi consult noted / appreciated and also d/w Dr. Lee. d/w RN also as well as ICU Resident Emperic abx f/u cultures compliance stressed Psychology consult dvt prophylaxis further recommendations per clinical course will follow cc time approx 45 min
--- NOTE | 2019-07-19 10:47 | PN ---
Teaching Attending Note Name of Resident: Javi Starkey ATTENDING PHYSICIAN STATEMENT I saw and evaluated the patient. I reviewed the resident's note and discussed the case with the resident. I agree with the resident's findings and plan as documented. SUBJECTIVE: Patient seen and examined in the ICU. Awake and alert. Reports fatigue. No CP or SOB. Remains on IV insulin drip. Intake & Output 07/16/19 07/17/19 07/18/19 07/19/19 23:59 23:59 23:59 23:59 Intake Total 1835 Output Total 2 Balance 1833 Weight 150 lb 143 lb 4.807 oz Last Vital Signs Temp Pulse Resp BP Pulse Ox 99 F 74 18 101/62 95 07/19/19 10:00 07/19/19 10:00 07/19/19 10:00 07/19/19 10:00 07/19/19 00:32 Active Medications Chlorhexidine Gluconate (Hibiclens For Decolonization -) 1 applic TP HS [facility] Heparin Sodium (Porcine) (Heparin -) 5,000 unit SQ TID [facility]ERO Potassium Chloride/Dextrose/Sod Cl (D5-1/2ns+20 Meq Kcl -) 20 meq in 1,000 mls @ 125 mls/hr IV ASDIR GUERRERO Last Admin: 07/19/19 04:45 Dose: 125 mls/hr Insulin Human Regular 100 (units/ Sodium Chloride) 100 mls @ 3.25 mls/hr IVPB TITR [facility]ERRERO; Protocol Ceftriaxone Sodium 1 gm/ (Dextrose) 50 mls @ 200 mls/hr IVPB DAILY [facility]; Protocol Mupirocin (Bactroban Ointment (For Decolonization) -) 1 applic NS BID [facility] Stop: 07/23/19 21:59 Last Admin: 07/19/19 09:25 Dose: 1 applic Pantoprazole Sodium (Protonix -) 40 mg PO DAILY [facility] Senna (Senna -) 1 tab PO BID GUERRERO Last Admin: 07/19/19 09:25 Dose: 1 tab GENERAL: Awake and alert, NAD HEAD: Normal with no signs of trauma. EYES: EOMI Sclera Clear EARS, NOSE, THROAT: Dry mucous membranes NECK: Supple LUNGS: CTAB HEART: RRR S1S2 ABDOMEN: Nontender to palpation. Soft Nondistended. Surgical scar lower mid abdomen LOWER EXTREMITIES: No clubbing, cyanosis, or edema NEUROLOGICAL: Cranial nerves II-XII intact. Normal speech. PSYCHIATRIC: Cooperative. Good eye contact. Appropriate mood and affect. CT read: in comparison to 2014 CT exam apparent interval development of mild concentric wall thickening of partially imaged lower third of thoracic esophagus - ?possible esophagitis. If clinically indicated correlate with endoscopy or barium radiography. No CT evidence of bowl obstruction. Moderate colonic fecal retention. Cholelithiasis. Interval mildly increased L adrenal gland thickening probably representing hyperplasia vs subcentimeter adenomas. Biochemical eval suggested as well as 3 month f/u CT or MRI to document stability. Urinary bladder appears mildly overdistended (current volume 500mL) - ?physiologic finding vs mild/early retention. Correlate clinically. As on prior study osseous structures appear diffusely demineralized. EKG-> NSR, 91bpm, normal intervals, no TWIs, no ST elevations or depressions, no peaked T waves ASSESSMENT/PLAN: DKA NIDDM Peptic ulcer disease s/p laparotomy History of skin CA R/O Esophagitis IV Insulin drip IVF PO as tolerated GI evaluation Strict I & O Replete lytes VTE prophylaxis Requires ICU monitoring while on IV Insulin Dr Knox Critical care time spent in reviewing chart, evaluating patient and formulating plan - 36 minutes.
--- NOTE | 2019-07-19 11:05 | PN ---
Physical Exam: SUBJECTIVE: Patient seen and examined at bed side , complain of abdominal pain , but no N/V/D/C. OBJECTIVE: Vital Signs Period Temp Pulse Resp BP Sys/St Pulse Ox Last 24 Hr 97.3 F-99.1 F 74-110 13-22 101-133/56-85 95-100 GENERAL: AAOx3 in NAD HEAD: NC/AT EYES: EOMI, Conjunctiva clear, sclera anicteric ENT: moist mucous membrane NECK: Supple, no JVD LUNGS: CTA B/L, no crackles no wheezing no accessory muscle use. HEART: RRR, NSR, normal s1, s2, murmur no M/R/G ABDOMEN: Soft, med epigastric tenderness, NT, +BS 4 Q, no CVA Tenderness LOWER EXTREMITIES: no edema, +2DP pulse, NEUROLOGICAL: No focal deficit. Normal speech. gait not observed. PSYCHIATRIC: Cooperative. Good eye contact. Appropriate mood and affect. SKIN: Warm, dry, Laboratory Results - last 24 hr 07/18/19 07/18/19 07/18/19 12:54 12:54 12:54 WBC 16.8 H RBC 5.38 Hgb 16.7 Hct 51.7 H D MCV 96.0 MCH 31.0 MCHC 32.3 RDW 14.0 Plt Count 251 D MPV 10.1 Absolute Neuts (auto) 13.8 H Neutrophils % 82.2 Lymphocytes % 8.0 D Monocytes % 9.1 Eosinophils % 0.0 D Basophils % 0.7 Nucleated RBC % 0 PT with INR 10.70 INR 0.91 PTT (Actin FS) 25.8 VBG pH POC VBG pCO2 POC VBG pO2 VBG HCO3 VBG O2 Sat (Jeannine) VBG Base Excess Sodium Potassium Chloride Carbon Dioxide Anion Gap BUN Creatinine Est GFR (CKD-EPI)AfAm Est GFR (CKD-EPI)NonAf POC Glucometer Random Glucose Hemoglobin A1c % Lactic Acid Calcium Phosphorus Magnesium Total Bilirubin AST ALT Alkaline Phosphatase Creatine Kinase 57 Troponin I < 0.02 Total Protein Albumin Lipase Beta-Hydroxybutyrate Urine Color Urine Appearance Urine pH Ur Specific Stanton Urine Protein Urine Glucose (UA) Urine Ketones Urine Blood Urine Nitrite Urine Bilirubin Urine Urobilinogen Ur Leukocyte Esterase Urine WBC (Auto) Urine RBC (Auto) Urine Casts (Auto) U Epithel Cells (Auto) Urine Bacteria (Auto) Blood Type Antibody Screen 07/18/19 07/18/19 07/18/19 12:54 12:54 12:54 WBC RBC Hgb Hct MCV MCH MCHC RDW Plt Count MPV Absolute Neuts (auto) Neutrophils % Lymphocytes % Monocytes % Eosinophils % Basophils % Nucleated RBC % PT with INR INR PTT (Actin FS) VBG pH POC VBG pCO2 POC VBG pO2 VBG HCO3 VBG O2 Sat (Jeannine) VBG Base Excess Sodium 124 L Potassium 6.3 H* Chloride 93 L Carbon Dioxide 11 L Anion Gap 20 H BUN 44.0 H Creatinine 1.9 H Est GFR (CKD-EPI)AfAm 40.78 Est GFR (CKD-EPI)NonAf 35.19 POC Glucometer Random Glucose 610 H* Hemoglobin A1c % Lactic Acid 2.6 H* Calcium 9.2 Phosphorus Magnesium Total Bilirubin 0.7 AST 10 L ALT 23 Alkaline Phosphatase 105 Creatine Kinase Troponin I Total Protein 7.8 Albumin 4.0 Lipase Beta-Hydroxybutyrate Urine Color Urine Appearance Urine pH Ur Specific Stanton Urine Protein Urine Glucose (UA) Urine Ketones Urine Blood Urine Nitrite Urine Bilirubin Urine Urobilinogen Ur Leukocyte Esterase Urine WBC (Auto) Urine RBC (Auto) Urine Casts (Auto) U Epithel Cells (Auto) Urine Bacteria (Auto) Blood Type O POSITIVE Antibody Screen Negative 07/18/19 07/18/19 07/18/19 12:54 12:54 14:15 WBC RBC Hgb Hct MCV MCH MCHC RDW Plt Count MPV Absolute Neuts (auto) Neutrophils % Lymphocytes % Monocytes % Eosinophils % Basophils % Nucleated RBC % PT with INR INR PTT (Actin FS) VBG pH 7.26 L POC VBG pCO2 27.3 L POC VBG pO2 < 49 H VBG HCO3 11.8 L VBG O2 Sat (Jeannine) 71.7 VBG Base Excess -13.9 L Sodium Potassium Chloride Carbon Dioxide Anion Gap BUN Creatinine Est GFR (CKD-EPI)AfAm Est GFR (CKD-EPI)NonAf POC Glucometer Random Glucose Hemoglobin A1c % Lactic Acid Calcium Phosphorus 4.7 Magnesium 3.1 H Total Bilirubin AST ALT Alkaline Phosphatase Creatine Kinase Troponin I Total Protein Albumin Lipase 311 Beta-Hydroxybutyrate Urine Color Urine Appearance Urine pH Ur Specific Stanton Urine Protein Urine Glucose (UA) Urine Ketones Urine Blood Urine Nitrite Urine Bilirubin Urine Urobilinogen Ur Leukocyte Esterase Urine WBC (Auto) Urine RBC (Auto) Urine Casts (Auto) U Epithel Cells (Auto) Urine Bacteria (Auto) Blood Type Antibody Screen 07/18/19 07/18/19 07/18/19 14:15 14:45 16:35 WBC RBC Hgb Hct MCV MCH MCHC RDW Plt Count MPV Absolute Neuts (auto) Neutrophils % Lymphocytes % Monocytes % Eosinophils % Basophils % Nucleated RBC % PT with INR INR PTT (Actin FS) VBG pH POC VBG pCO2 POC VBG pO2 VBG HCO3 VBG O2 Sat (Jeannine) VBG Base Excess Sodium Potassium Chloride Carbon Dioxide Anion Gap BUN Creatinine Est GFR (CKD-EPI)AfAm Est GFR (CKD-EPI)NonAf POC Glucometer 455 Random Glucose Hemoglobin A1c % Lactic Acid Calcium Phosphorus Magnesium Total Bilirubin AST ALT Alkaline Phosphatase Creatine Kinase Troponin I Total Protein Albumin Lipase Beta-Hydroxybutyrate > 46.0 H Urine Color Yellow Urine Appearance Clear Urine pH 5.0 Ur Specific Stanton 1.030 Urine Protein Trace Urine Glucose (UA) 3+ H Urine Ketones 3+ H Urine Blood Trace Urine Nitrite Negative Urine Bilirubin Negative Urine Urobilinogen 0.2 Ur Leukocyte Esterase Negative Urine WBC (Auto) 0 Urine RBC (Auto) 1 Urine Casts (Auto) 1 U Epithel Cells (Auto) 0.4 Urine Bacteria (Auto) 6.9 Blood Type Antibody Screen 07/18/19 07/18/19 07/18/19 17:09 17:10 19:28 WBC RBC Hgb Hct MCV MCH MCHC RDW Plt Count MPV Absolute Neuts (auto) Neutrophils % Lymphocytes % Monocytes % Eosinophils % Basophils % Nucleated RBC % PT with INR INR PTT (Actin FS) VBG pH POC VBG pCO2 POC VBG pO2 VBG HCO3 VBG O2 Sat (Jeannine) VBG Base Excess Sodium 129 L Potassium 4.6 Chloride 100 Carbon Dioxide 10 L Anion Gap 18 H BUN 37.4 H Creatinine 1.5 H Est GFR (CKD-EPI)AfAm 54.27 Est GFR (CKD-EPI)NonAf 46.83 POC Glucometer 345 Random Glucose 417 H* Hemoglobin A1c % Lactic Acid 1.0 Calcium 7.9 L Phosphorus Magnesium Total Bilirubin AST ALT Alkaline Phosphatase Creatine Kinase Troponin I Total Protein Albumin Lipase Beta-Hydroxybutyrate Urine Color Urine Appearance Urine pH Ur Specific Stanton Urine Protein Urine Glucose (UA) Urine Ketones Urine Blood Urine Nitrite Urine Bilirubin Urine Urobilinogen Ur Leukocyte Esterase Urine WBC (Auto) Urine RBC (Auto) Urine Casts (Auto) U Epithel Cells (Auto) Urine Bacteria (Auto) Blood Type Antibody Screen 07/18/19 07/19/19 07/19/19 21:52 00:11 02:15 WBC RBC Hgb Hct MCV MCH MCHC RDW Plt Count MPV Absolute Neuts (auto) Neutrophils % Lymphocytes % Monocytes % Eosinophils % Basophils % Nucleated RBC % PT with INR INR PTT (Actin FS) VBG pH POC VBG pCO2 POC VBG pO2 VBG HCO3 VBG O2 Sat (Jeannine) VBG Base Excess Sodium 137 Potassium 4.2 Chloride 110 H Carbon Dioxide 17 L Anion Gap 10 BUN 23.9 H Creatinine 1.2 Est GFR (CKD-EPI)AfAm 71.08 Est GFR (CKD-EPI)NonAf 61.33 POC Glucometer 351 248 Random Glucose 143 H Hemoglobin A1c % Lactic Acid Calcium 7.9 L Phosphorus Magnesium Total Bilirubin AST ALT Alkaline Phosphatase Creatine Kinase Troponin I Total Protein Albumin Lipase Beta-Hydroxybutyrate Urine Color Urine Appearance Urine pH Ur Specific Stanton Urine Protein Urine Glucose (UA) Urine Ketones Urine Blood Urine Nitrite Urine Bilirubin Urine Urobilinogen Ur Leukocyte Esterase Urine WBC (Auto) Urine RBC (Auto) Urine Casts (Auto) U Epithel Cells (Auto) Urine Bacteria (Auto) Blood Type Antibody Screen 07/19/19 07/19/19 07/19/19 02:20 03:28 04:22 WBC RBC Hgb Hct MCV MCH MCHC RDW Plt Count MPV Absolute Neuts (auto) Neutrophils % Lymphocytes % Monocytes % Eosinophils % Basophils % Nucleated RBC % PT with INR INR PTT (Actin FS) VBG pH POC VBG pCO2 POC VBG pO2 VBG HCO3 VBG O2 Sat (Jeannine) VBG Base Excess Sodium Potassium Chloride Carbon Dioxide Anion Gap BUN Creatinine Est GFR (CKD-EPI)AfAm Est GFR (CKD-EPI)NonAf POC Glucometer 153 96 177 Random Glucose Hemoglobin A1c % Lactic Acid Calcium Phosphorus Magnesium Total Bilirubin AST ALT Alkaline Phosphatase Creatine Kinase Troponin I Total Protein Albumin Lipase Beta-Hydroxybutyrate Urine Color Urine Appearance Urine pH Ur Specific Stanton Urine Protein Urine Glucose (UA) Urine Ketones Urine Blood Urine Nitrite Urine Bilirubin Urine Urobilinogen Ur Leukocyte Esterase Urine WBC (Auto) Urine RBC (Auto) Urine Casts (Auto) U Epithel Cells (Auto) Urine Bacteria (Auto) Blood Type Antibody Screen 07/19/19 07/19/19 07/19/19 07:05 07:05 07:05 WBC 12.4 H RBC 4.14 Hgb 13.1 Hct 37.9 D MCV 91.5 MCH 31.6 MCHC 34.5 RDW 13.6 Plt Count 174 D MPV 9.2 Absolute Neuts (auto) 10.0 H Neutrophils % 80.0 Lymphocytes % 9.0 Monocytes % 10.7 H Eosinophils % 0.0 Basophils % 0.3 Nucleated RBC % 0 PT with INR 10.90 INR 0.92 PTT (Actin FS) 26.6 VBG pH POC VBG pCO2 POC VBG pO2 VBG HCO3 VBG O2 Sat (Jeannine) VBG Base Excess Sodium 135 L Potassium 4.4 Chloride 108 H Carbon Dioxide 14 L Anion Gap 12 BUN 19.9 H Creatinine 1.1 Est GFR (CKD-EPI)AfAm 78.97 Est GFR (CKD-EPI)NonAf 68.13 POC Glucometer Random Glucose 277 H Hemoglobin A1c % Lactic Acid Calcium 7.8 L Phosphorus 2.1 L Magnesium 2.3 Total Bilirubin AST ALT Alkaline Phosphatase Creatine Kinase Troponin I Total Protein Albumin Lipase Beta-Hydroxybutyrate Urine Color Urine Appearance Urine pH Ur Specific Stanton Urine Protein Urine Glucose (UA) Urine Ketones Urine Blood Urine Nitrite Urine Bilirubin Urine Urobilinogen Ur Leukocyte Esterase Urine WBC (Auto) Urine RBC (Auto) Urine Casts (Auto) U Epithel Cells (Auto) Urine Bacteria (Auto) Blood Type Antibody Screen 07/19/19 07/19/19 07/19/19 07:05 07:21 08:35 WBC RBC Hgb Hct MCV MCH MCHC RDW Plt Count MPV Absolute Neuts (auto) Neutrophils % Lymphocytes % Monocytes % Eosinophils % Basophils % Nucleated RBC % PT with INR INR PTT (Actin FS) VBG pH POC VBG pCO2 POC VBG pO2 VBG HCO3 VBG O2 Sat (Jeannine) VBG Base Excess Sodium Potassium Chloride Carbon Dioxide Anion Gap BUN Creatinine Est GFR (CKD-EPI)AfAm Est GFR (CKD-EPI)NonAf POC Glucometer 273 306 Random Glucose Hemoglobin A1c % 14.0 H Lactic Acid Calcium Phosphorus Magnesium Total Bilirubin AST ALT Alkaline Phosphatase Creatine Kinase Troponin I Total Protein Albumin Lipase Beta-Hydroxybutyrate Urine Color Urine Appearance Urine pH Ur Specific Stanton Urine Protein Urine Glucose (UA) Urine Ketones Urine Blood Urine Nitrite Urine Bilirubin Urine Urobilinogen Ur Leukocyte Esterase Urine WBC (Auto) Urine RBC (Auto) Urine Casts (Auto) U Epithel Cells (Auto) Urine Bacteria (Auto) Blood Type Antibody Screen 07/19/19 10:14 WBC RBC Hgb Hct MCV MCH MCHC RDW Plt Count MPV Absolute Neuts (auto) Neutrophils % Lymphocytes % Monocytes % Eosinophils % Basophils % Nucleated RBC % PT with INR INR PTT (Actin FS) VBG pH POC VBG pCO2 POC VBG pO2 VBG HCO3 VBG O2 Sat (Jeannine) VBG Base Excess Sodium Potassium Chloride Carbon Dioxide Anion Gap BUN Creatinine Est GFR (CKD-EPI)AfAm Est GFR (CKD-EPI)NonAf POC Glucometer 246 Random Glucose Hemoglobin A1c % Lactic Acid Calcium Phosphorus Magnesium Total Bilirubin AST ALT Alkaline Phosphatase Creatine Kinase Troponin I Total Protein Albumin Lipase Beta-Hydroxybutyrate Urine Color Urine Appearance Urine pH Ur Specific Stanton Urine Protein Urine Glucose (UA) Urine Ketones Urine Blood Urine Nitrite Urine Bilirubin Urine Urobilinogen Ur Leukocyte Esterase Urine WBC (Auto) Urine RBC (Auto) Urine Casts (Auto) U Epithel Cells (Auto) Urine Bacteria (Auto) Blood Type Antibody Screen Active Medications Generic Name Dose Route Start Last Admin Trade Name Freq PRN Reason Stop Dose Admin Chlorhexidine Gluconate 1 applic 07/19/19 22:00 Hibiclens For Decolonization - TP HS [facility] Heparin Sodium (Porcine) 5,000 unit 07/19/19 22:00 Heparin - SQ TID [facility] Potassium Chloride/Dextrose/Sod Cl 20 meq in 1,000 mls @ 125 mls/hr 07/19/19 04:30 07/19/19 04:45 D5-1/2ns+20 Meq Kcl - IV 125 mls/hr ASDIR [facility] Administration Insulin Human Regular 100 100 mls @ 3.25 mls/hr 07/19/19 09:45 units/ Sodium Chloride IVPB TITR [facility] Protocol 0.05 UNITS/KG/HR Ceftriaxone Sodium 1 gm/ 50 mls @ 200 mls/hr 07/19/19 10:45 Dextrose IVPB DAILY [facility] Protocol Mupirocin 1 applic 07/18/19 22:00 07/19/19 09:25 Bactroban Ointment (For Decolonization) - NS 07/23/19 21:59 1 applic BID [facility] Administration Pantoprazole Sodium 40 mg 07/20/19 10:15 Protonix - PO DAILY [facility] Senna 1 tab 07/19/19 10:00 07/19/19 09:25 Senna - PO 1 tab BID [facility] Administration CBC, BMP 07/19/19 07:05 07/19/19 07:05 ASSESSMENT/PLAN: CT read: in comparison to 2013 CT exam apparent interval development of mild concentric wall thickening of partially imaged lower third of thoracic esophagus - ?possible esophagitis. If clinically indicated correlate with endoscopy or barium radiography. No CT evidence of bowl obstruction. Moderate colonic fecal retention. Cholelithiasis. Interval mildly increased L adrenal gland thickening probably representing hyperplasia vs subcentimeter adenomas. Biochemical eval suggested as well as 3 month f/u CT or MRI to document stability. Urinary bladder appears mildly overdistended (current volume 500mL) - ?physiologic finding vs mild/early retention. Correlate clinically. As on prior study osseous structures appear diffusely demineralized. EKG-> NSR, 91bpm, normal intervals, no TWIs, no ST elevations or depressions, no peaked T waves ASSESSMENT/PLAN: Pt is a 69 y/o M with a significant past medical history of NIDDM, peptic ulcer disease s/p laparotomy, and skin CA who [facility] due to 4 days of vomiting, nausea, constipation, fatigue, chills, and abdominal pain. #Diabetic Ketoacidosis -V[facility] PH 7.26, CO2 11, B Hydroxybutyrate >46, random glucose 610, Lactic acid 2.6 -Potassium 6.3, Insulin gtt started. NS bolus given 500cc. Repeat K+ 4.6, will administer NS w/ 20 Meq KCL. -BMP Q2H -BGM Q1H -Will switch IV fluid to D5 1/2 NS when BGM < 250. Will bridge insulin gtt with SQ insulin once anion gap closed. -CTAP--> No SBO. possible esophagitis due to vomiting last couple days . -GI Consulted recommend PPI 40 IV daily - ceftrixone 1 gm IV daily started by primary team Dr Dorado. #FEN NS w/ 20 mEQ KCL Monitor Electrolytes diabetic diet #DVT ppx: Heparin SC TID Visit type - Emergency Visit Emergency Visit: Yes ED Registration Date: 07/18/19 Care time: The patient presented to the Emergency Department on the above date and was hospitalized for further evaluation of their emergent condition. - New Patient This patient is new to me today: Yes Date on this admission: 07/19/19 - Critical Care Critical Care patient: Yes Total Critical Care Time (in minutes): 45 Critical Care Statement: The care of this patient involved high complexity decision making to prevent further life threatening deterioration of the patient 's condition and/or to evaluate & treat vital organ system(s) failure or risk of failure. ATTENDING PHYSICIAN STATEMENT I saw and evaluated the patient. I reviewed the resident's note and discussed the case with the resident. I agree with the resident's findings and plan as documented. SUBJECTIVE: OBJECTIVE: ASSESSMENT AND PLAN:
[2019-07-19] MEDS ORDERED: DEXTROSE 5%-WATER - 50 ML IVPB ONE (11:22)
[2019-07-19] MEDS ORDERED: cefTRIAXone SODIUM 1 GM VIAL ONE (11:22)
[2019-07-19] MEDS: CEFTRIAXONE 1 GM in DEXTROSE 5%-WATER - 50 ML IVPB SCH (11:31)
[2019-07-19 12:54] LABS: BLOOD UREA NITROGEN 17.8 mg/dL (7-18); CALCIUM 8.1 mg/dL (8.5-10.1); POTASSIUM 3.8 mmol/L (3.5-5.1)
[2019-07-19 16:29] LABS: BLOOD UREA NITROGEN 15.7 mg/dL (7-18); CALCIUM 8.3 mg/dL (8.5-10.1); POTASSIUM 3.9 mmol/L (3.5-5.1)
[2019-07-19] MEDS ORDERED: LACTATED RINGERS SOLUTION 1,000 ML/1,000 ML INFUS.BAG IV SCH (16:30)
[2019-07-19] MEDS: INSULIN SLIDING SCALE (NOVOLOG) 1 VIAL SQ SCH ×2 (17:32→23:30)
[2019-07-19] MEDS ORDERED: CHLORHEXIDINE GLUCONATE 4% CLEANSER FOR DECOLONIZATION TP SCH (22:00)
[2019-07-19] MEDS: HEPARIN NA (PORCINE) 5,000 UNITS/ML 1ML VIAL SQ SCH (23:24)
[2019-07-20 00:18] LABS: BLOOD UREA NITROGEN 14.3 mg/dL (7-18); CREATININE 0.9 mg/dL (0.55-1.3); POTASSIUM 3.8 mmol/L (3.5-5.1)
[2019-07-20] MEDS: HEPARIN NA (PORCINE) 5,000 UNITS/ML 1ML VIAL SQ SCH ×3 (06:30→22:27)
[2019-07-20] MEDS: INSULIN SLIDING SCALE (NOVOLOG) 1 VIAL SQ SCH ×4 (06:51→22:32)
[2019-07-20 07:53] LABS: BASO % 0.3 % (0-2.0); HEMATOCRIT 42.3 % (35.4-49); HEMOGLOBIN 14.4 GM/dL (11.7-16.9); LYMPH % 14.2 % (8-40); MCH 31.2 pg (25.7-33.7); MEAN CELL VOLUME 91.8 fl (80-96); NEUT % 72.5 % (42.8-82.8); PLATELET COUNT 167 K/MM3 (134-434); RBC 4.61 M/mm3 (4.00-5.60); RDW 13.4 % (11.9-15.9); WHITE BLOOD COUNT 9.6 K/mm3 (4.0-10.0)
--- NOTE | 2019-07-20 08:28 | EKG ---
Test Reason : Blood Pressure : / mmHG Vent. Rate : 091 BPM Atrial Rate : 091 BPM P-R Int : 120 ms QRS Dur : 088 ms QT Int : 376 ms P-R-T Axes : 069 025 060 degrees QTc Int : 462 ms NORMAL SINUS RHYTHM NORMAL ECG WHEN COMPARED WITH ECG OF 14-MAY-2011 09:56, NO SIGNIFICANT CHANGE WAS FOUND Confirmed by Ceci Mayorga ([id number]) on 07/20/2019 8:28:13 AM Referred By: Confirmed By:Ceci Mayorga
[2019-07-20 08:37] LABS: ALBUMIN 2.7 g/dl (3.4-5.0); BILIRUBIN,TOTAL 0.6 mg/dL (0.2-1); BLOOD UREA NITROGEN 12.5 mg/dL (7-18); CALCIUM 8.3 mg/dL (8.5-10.1); CREATININE 0.9 mg/dL (0.55-1.3); MAGNESIUM 2.3 mg/dL (1.8-2.4); POTASSIUM 3.6 mmol/L (3.5-5.1); TOT PROT 5.6 g/dl (6.4-8.2)
[2019-07-20] MEDS ORDERED: cefTRIAXone SODIUM 1 GM VIAL ONE (08:45)
[2019-07-20] MEDS ORDERED: DEXTROSE 5%-WATER - 50 ML IVPB ONE (08:46)
[2019-07-20] MEDS: CEFTRIAXONE 1 GM in DEXTROSE 5%-WATER - 50 ML IVPB SCH (09:48)
[2019-07-20] MEDS ORDERED: PANTOPRAZOLE 20 MG TABLET (FP) PO SCH (10:15)
--- NOTE | 2019-07-20 10:15 | PN ---
Teaching Attending Note Name of Resident: Luke Rashid ATTENDING PHYSICIAN STATEMENT I saw and evaluated the patient. I reviewed the resident's note and discussed the case with the resident. I agree with the resident's findings and plan as documented. SUBJECTIVE: Patient seen and examined in the ICU. Awake and alert. Currently off IV Insulin. Reports GERD like symptoms. No CP or SOB. Intake & Output 07/17/19 07/18/19 07/19/19 07/20/19 23:59 23:59 23:59 23:59 Intake Total 3593 751 Output Total 2 2 Balance 3591 749 Weight 150 lb 143 lb 4.807 oz Last Vital Signs Temp Pulse Resp BP Pulse Ox 97.2 F L 94 H 21 H 132/83 93 L 07/20/19 02:00 07/20/19 08:51 07/20/19 08:51 07/20/19 08:51 07/19/19 21:00 Active Medications Chlorhexidine Gluconate (Hibiclens For Decolonization -) 1 applic TP HS [facility] Last Admin: 07/19/19 23:24 Dose: 1 applic Heparin Sodium (Porcine) (Heparin -) 5,000 unit SQ TID [facility] Last Admin: 07/20/19 06:30 Dose: 5,000 unit Ceftriaxone Sodium 1 gm/ (Dextrose) 50 mls @ 100 mls/hr IVPB DAILY [facility]; Protocol Last Admin: 07/20/19 09:48 Dose: 100 mls/hr Dextrose/Sodium Chloride (D5-1/2ns -) 1,000 mls @ 83 mls/hr IV ASDIR [facility] Last Admin: 07/19/19 17:34 Dose: 83 mls/hr Insulin Aspart (Novolog Vial Sliding Scale -) 1 vial SQ ACHS [facility]; Protocol Last Admin: 07/20/19 06:51 Dose: 6 units Mupirocin (Bactroban Ointment (For Decolonization) -) 1 applic NS BID [facility] Stop: 07/23/19 21:59 Last Admin: 07/19/19 23:24 Dose: 1 applic Pantoprazole Sodium (Protonix -) 40 mg PO DAILY [facility] Last Admin: 07/20/19 09:48 Dose: 40 mg Senna (Senna -) 1 tab PO BID [facility] Last Admin: 07/19/19 23:25 Dose: Not Given GENERAL: Awake and alert, NAD HEAD: Normal with no signs of trauma. EYES: EOMI Sclera Clear EARS, NOSE, THROAT: Dry mucous membranes NECK: Supple LUNGS: CTAB HEART: RRR S1S2 ABDOMEN: Nontender to palpation. Soft Nondistended. Surgical scar lower mid abdomen LOWER EXTREMITIES: No clubbing, cyanosis, or edema NEUROLOGICAL: Cranial nerves II-XII intact. Normal speech. PSYCHIATRIC: Cooperative. Good eye contact. Appropriate mood and affect. Laboratory Results - last 24 hr 07/19/19 07/19/19 07/19/19 10:14 11:38 11:55 WBC RBC Hgb Hct MCV MCH MCHC RDW Plt Count MPV Absolute Neuts (auto) Neutrophils % Lymphocytes % Monocytes % Eosinophils % Basophils % Nucleated RBC % Sodium 136 Potassium 3.8 Chloride 108 H Carbon Dioxide 19 L Anion Gap 9 BUN 17.8 Creatinine 1.0 Est GFR (CKD-EPI)AfAm 88.61 Est GFR (CKD-EPI)NonAf 76.45 POC Glucometer 246 207 Random Glucose 204 H Calcium 8.1 L Phosphorus Magnesium Total Bilirubin AST ALT Alkaline Phosphatase Total Protein Albumin 07/19/19 07/19/19 07/19/19 12:39 14:33 15:15 WBC RBC Hgb Hct MCV MCH MCHC RDW Plt Count MPV Absolute Neuts (auto) Neutrophils % Lymphocytes % Monocytes % Eosinophils % Basophils % Nucleated RBC % Sodium 137 Potassium 3.9 Chloride 110 H Carbon Dioxide 19 L Anion Gap 9 BUN 15.7 Creatinine 1.0 Est GFR (CKD-EPI)AfAm 88.61 Est GFR (CKD-EPI)NonAf 76.45 POC Glucometer 189 149 Random Glucose 154 H Calcium 8.3 L Phosphorus Magnesium Total Bilirubin AST ALT Alkaline Phosphatase Total Protein Albumin 07/19/19 07/19/19 07/19/19 17:20 22:03 23:45 WBC RBC Hgb Hct MCV MCH MCHC RDW Plt Count MPV Absolute Neuts (auto) Neutrophils % Lymphocytes % Monocytes % Eosinophils % Basophils % Nucleated RBC % Sodium 137 Potassium 3.8 Chloride 107 Carbon Dioxide 19 L Anion Gap 10 BUN 14.3 Creatinine 0.9 Est GFR (CKD-EPI)AfAm 100.65 Est GFR (CKD-EPI)NonAf 86.84 POC Glucometer 162 240 Random Glucose 266 H Calcium 8.0 L Phosphorus Magnesium Total Bilirubin AST ALT Alkaline Phosphatase Total Protein Albumin 07/20/19 07/20/1919 06:26 06:26 06:32 WBC 9.6 RBC 4.61 Hgb 14.4 Hct 42.3 MCV 91.8 MCH 31.2 MCHC 34.0 RDW 13.4 Plt Count 167 MPV 10.0 Absolute Neuts (auto) 7.0 Neutrophils % 72.5 Lymphocytes % 14.2 D Monocytes % 13.0 H Eosinophils % 0.0 Basophils % 0.3 Nucleated RBC % 0 Sodium 134 L Potassium 3.6 Chloride 104 Carbon Dioxide 20 L Anion Gap 11 BUN 12.5 Creatinine 0.9 Est GFR (CKD-EPI)AfAm 100.65 Est GFR (CKD-EPI)NonAf 86.84 POC Glucometer 295 Random Glucose 298 H Calcium 8.3 L Phosphorus 2.0 L Magnesium 2.3 Total Bilirubin 0.6 AST 9 L ALT 13 Alkaline Phosphatase 70 Total Protein 5.6 L Albumin 2.7 L ASSESSMENT/PLAN: DKA NIDDM Peptic ulcer disease s/p laparotomy History of skin CA R/O Esophagitis SQ Insulin IVF PO as tolerated Strict I & O Replete lytes VTE prophylaxis Floor Dr Knox
[2019-07-20] MEDS ORDERED: SODIUM CHLORIDE 1,000 ML IV SCH (10:30)
[2019-07-20] MEDS: SENNOSIDES 8.6MG TABLET (FP) PO SCH ×2 (11:00→22:27)
--- NOTE | 2019-07-20 11:31 | PN ---
Progress Note (short form) - Note Progress Note: pt seen/ examined in icu all f/u noted better afebrile bgm - better off drip Vital Signs Temp 97.2 F L 07/20/19 02:00 Pulse 94 H 07/20/19 08:51 Resp 21 H 07/20/19 08:51 BP 132/83 07/20/19 08:51 Pulse Ox 93 L 07/19/19 21:00 Intake & Output 07/19/19 07/19/19 07/20/19 11:59 23:59 11:59 Intake Total 1835 1758 751 Output Total 2 2 Balance 1833 1758 749 Weight 143 lb 4.807 oz Intake: IV 1835 1348 751 D5-1/2NS+20 MEQ KCL - 20 1807 1250 meq In 1,000 ml @ 125 mls /hr IV ASDIR GUERRERO Rx#: [id number] D5-1/2Ns - 1,000 ml @ 83 83 751 mls/hr IV ASDIR GUERRERO Rx#: [id number] NOVOLIN R VIAL *For 15 IVPUSH or IV DRIP Only* 100 UNITS In Normal Saline - 99 ml @ 0.05 UNITS/KG/HR 3.25 mls/hr IVPB TITR [facility]ERR[facility] Rx#: [id number] NOVOLIN R VIAL *For 28 IVPUSH or IV DRIP Only* 100 UNITS In Normal Saline - 99 ml @ 7 UNITS/ HR 7 mls/hr IVPB TITR [facility] Rx#:[id number] IVPB 50 Oral 360 Output: Urine 2 2 Void 2 2 Other: Voiding Method Urinal Toilet # Unmeasured Voids Void 1 1 Bowel Movement No No No Height 5 ft 8 in Body Mass Index (BMI) 21.7 Weight Measurement Method Built in [facility] Active Medications Chlorhexidine Gluconate (Hibiclens For Decolonization -) 1 applic TP HS [facility] Last Admin: 07/19/19 23:24 Dose: 1 applic Heparin Sodium (Porcine) (Heparin -) 5,000 unit SQ TID [facility] Last Admin: 07/20/19 06:30 Dose: 5,000 unit Ceftriaxone Sodium 1 gm/ (Dextrose) 50 mls @ 100 mls/hr IVPB DAILY [facility]; Protocol Last Admin: 07/20/19 09:48 Dose: 100 mls/hr Sodium Chloride (Normal Saline -) 1,000 mls @ 100 mls/hr IV ASDIR [facility] Insulin Aspart (Novolog Vial Sliding Scale -) 1 vial SQ ACHS [facility]; Protocol Last Admin: 07/20/19 06:51 Dose: 6 units Insulin Detemir (Levemir Vial) 15 units SQ HS [facility] Mupirocin (Bactroban Ointment (For Decolonization) -) 1 applic NS BID [facility] Stop: 07/23/19 21:59 Last Admin: 07/19/19 23:24 Dose: 1 applic Pantoprazole Sodium (Protonix -) 40 mg PO DAILY [facility] Last Admin: 07/20/19 09:48 Dose: 40 mg Senna (Senna -) 1 tab PO BID [facility] Last Admin: 07/19/19 23:25 Dose: Not Given CBC, BMP 07/20/19 06:26 07/20/19 06:26 Microbiology 07/18/19 14:15 Blood Culture - Preliminary Blood - Peripheral Venous NO GROWTH OBTAINED AFTER 24 HOURS, INCUBATION TO CONTINUE FOR 4 DAYS. 07/18/19 14:15 Blood Culture - Preliminary Blood - Peripheral Venous NO GROWTH OBTAINED AFTER 24 HOURS, INCUBATION TO CONTINUE FOR 4 DAYS. 07/18/19 14:45 Urine Culture - Final Urine - Urine Clean Catch NO GROWTH OBTAINED Physical Examination Constitutional: Yes: Calm,Comfortable Eyes: Yes: Conjunctiva Clear HENT: Yes: Other (dry) Neck: Yes: Supple Cardiovascular: Yes: Regular Rate and Rhythm Respiratory: Yes: CTA Bilaterally Gastrointestinal: Yes: Normal Bowel Sounds, Soft Edema: No Neurological: Yes: Alert Psychiatric: Yes: Alert-- admits feels depressed Assessment/Plan Better Fluids Off Insulin drip d/c D5 HbA1c >14 !! f/u electrolytes/ labs Emperic abx wbc improved f/u cultures compliance stressed d/c icu resident and attending Psychology consult- Pending dvt prophylaxis add levemir Monitor bgm Transmission Specialist consult transfer to floor add Ssri Will follow Problem List - Problems (1) Mood disorder Code(s): F39 - UNSPECIFIED MOOD [AFFECTIVE] DISORDER (2) DKA (diabetic ketoacidoses) Code(s): E11.10 - TYPE 2 DIABETES MELLITUS WITH KETOACIDOSIS WITHOUT COMA (3) Adrenal adenoma Code(s): D35.00 - BENIGN NEOPLASM OF UNSPECIFIED ADRENAL GLAND
[2019-07-20] MEDS: MUPIROCIN 2% TOPICAL OINTMENT FOR DECOLONIZATION NS SCH ×2 (12:04→22:26)
[2019-07-20] MEDS: ENALAPRIL MALEATE 5 MG TABLET (FP) PO SCH (12:13)
--- NOTE | 2019-07-20 13:09 | PN ---
Physical Exam: SUBJECTIVE: Patient seen and examined in ICU. No acute events. Pt is off insulin drip and tolerating PO. OBJECTIVE: Vital Signs Period Temp Pulse Resp BP Sys/St Pulse Ox Last 24 Hr 97.2 F-99 F 65-110 16-24 99-145/51-88 93-93 GENERAL: The patient is awake alert and oriented not complaining of abdominal pain. NECK: supple. LUNGS: Breath sounds equal, clear to auscultation bilaterally, no wheezes, no crackles, no accessory muscle use. HEART: Regular rate and rhythm, S1, S2 without murmur, rub or gallop. ABDOMEN: Soft, nontender, nondistended, normoactive bowel sounds EXTREMITIES: 2+ dp pulses, warm, well-perfused, no edema. SKIN: Warm, dry, no rashes or lesions noted Laboratory Results - last 24 hr 07/19/19 07/19/19 07/19/19 14:33 15:15 17:20 WBC RBC Hgb Hct MCV MCH MCHC RDW Plt Count MPV Absolute Neuts (auto) Neutrophils % Lymphocytes % Monocytes % Eosinophils % Basophils % Nucleated RBC % Sodium 137 Potassium 3.9 Chloride 110 H Carbon Dioxide 19 L Anion Gap 9 BUN 15.7 Creatinine 1.0 Est GFR (CKD-EPI)AfAm 88.61 Est GFR (CKD-EPI)NonAf 76.45 POC Glucometer 149 162 Random Glucose 154 H Calcium 8.3 L Phosphorus Magnesium Total Bilirubin AST ALT Alkaline Phosphatase Total Protein Albumin 07/19/19 07/19/19 07/20/19 22:03 23:45 06:26 WBC 9.6 RBC 4.61 Hgb 14.4 Hct 42.3 MCV 91.8 MCH 31.2 MCHC 34.0 RDW 13.4 Plt Count 167 MPV 10.0 Absolute Neuts (auto) 7.0 Neutrophils % 72.5 Lymphocytes % 14.2 D Monocytes % 13.0 H Eosinophils % 0.0 Basophils % 0.3 Nucleated RBC % 0 Sodium 137 Potassium 3.8 Chloride 107 Carbon Dioxide 19 L Anion Gap 10 BUN 14.3 Creatinine 0.9 Est GFR (CKD-EPI)AfAm 100.65 Est GFR (CKD-EPI)NonAf 86.84 POC Glucometer 240 Random Glucose 266 H Calcium 8.0 L Phosphorus Magnesium Total Bilirubin AST ALT Alkaline Phosphatase Total Protein Albumin 07/20/19 07/20/1919 06:26 06:32 12:00 WBC RBC Hgb Hct MCV MCH MCHC RDW Plt Count MPV Absolute Neuts (auto) Neutrophils % Lymphocytes % Monocytes % Eosinophils % Basophils % Nucleated RBC % Sodium 134 L Potassium 3.6 Chloride 104 Carbon Dioxide 20 L Anion Gap 11 BUN 12.5 Creatinine 0.9 Est GFR (CKD-EPI)AfAm 100.65 Est GFR (CKD-EPI)NonAf 86.84 POC Glucometer 295 357 Random Glucose 298 H Calcium 8.3 L Phosphorus 2.0 L Magnesium 2.3 Total Bilirubin 0.6 AST 9 L ALT 13 Alkaline Phosphatase 70 Total Protein 5.6 L Albumin 2.7 L Active Medications Generic Name Dose Route Start Last Admin Trade Name Freq PRN Reason Stop Dose Admin Atorvastatin Calcium 10 mg 07/20/19 22:00 Lipitor - PO HS GUERRERO Chlorhexidine Gluconate 1 applic 07/19/19 22:00 07/19/19 23:24 Hibiclens For Decolonization - TP 1 applic HS GUERRERO Administration Enalapril Maleate 5 mg 07/20/19 11:45 07/20/19 12:13 Vasotec - PO 5 mg DAILY GUERRERO Administration Heparin Sodium (Porcine) 5,000 unit 07/19/19 22:00 07/20/19 06:30 Heparin - SQ 5,000 unit TID GUERRERO Administration Ceftriaxone Sodium 1 gm/ 50 mls @ 100 mls/hr 07/19/19 11:30 07/20/19 09:48 Dextrose IVPB 100 mls/hr DAILY GUERRERO Administration Protocol Sodium Chloride 1,000 mls @ 100 mls/hr 07/20/19 10:30 07/20/19 12:03 Normal Saline - IV 100 mls/hr ASDIR GUERRERO Administration Insulin Aspart 1 vial 07/19/19 16:30 07/20/19 12:06 Novolog Vial Sliding Scale - SQ 10 units ACHS GUERERRO Administration Protocol Insulin Detemir 15 units 07/20/19 22:00 Levemir Vial SQ HS GUERRERO Mupirocin 1 applic 07/18/19 22:00 07/20/19 12:04 Bactroban Ointment (For Decolonization) - NS 07/23/19 21:59 1 applic BID GUERRERO Administration Pantoprazole Sodium 40 mg 07/20/19 10:15 07/20/19 09:48 Protonix - PO 40 mg DAILY GUERRERO Administration Senna 1 tab 07/19/19 10:00 07/20/19 11:00 Senna - PO 1 tab BID GUERRERO Administration Sertraline HCl 25 mg 07/20/19 18:00 Zoloft - PO DAILY GUERRERO ASSESSMENT/PLAN: Pt is a 69 y/o M with a significant past medical history of NIDDM, peptic ulcer disease s/p laparotomy, and skin CA who presented to [facility] due to 4 days of vomiting, nausea, constipation, fatigue, chills, and abdominal pain. #Diabetic Ketoacidosis -> Gap closed on SQ - d/c D5 patient tolerating foods now. - continue with levemir 15 units SQ HS -CTAP--> No SBO. possible esophagitis due to vomiting last couple days . - continue PPI 40 IV daily - ceftriaxone 1 gm IV daily started by primary team Dr Dorado. #FEN NS w/ 20 mEQ KCL Monitor Electrolytes diabetic diet #DVT ppx: Heparin 5000 SQ TID Visit type - Emergency Visit Emergency Visit: Yes ED Registration Date: 07/18/19 Care time: The patient presented to the Emergency Department on the above date and was hospitalized for further evaluation of their emergent condition. - New Patient This patient is new to me today: Yes Date on this admission: 07/20/19 - Critical Care Critical Care patient: Yes Total Critical Care Time (in minutes): 35 Critical Care Statement: The care of this patient involved high complexity decision making to prevent further life threatening deterioration of the patient 's condition and/or to evaluate & treat vital organ system(s) failure or risk of failure. - Discharge Referral Referred to [facility] Med P.C.: No
[2019-07-20] MEDS: SERTRALINE HCL 25 MG TABLET (FP) PO SCH (17:25)
[2019-07-20] MEDS: SODIUM CHLORIDE 1,000 ML IV SCH (17:27)
[2019-07-20] MEDS ORDERED: INSULIN (LEVEMIR) 100 UNITS/ML UNITS SQ SCH ×2 (22:00)
[2019-07-20] MEDS: CHLORHEXIDINE GLUCONATE 4% CLEANSER FOR DECOLONIZATION TP SCH (22:25)
[2019-07-20] MEDS: ATORVASTATIN CA 10 MG TABLET (FP) PO SCH (22:27)
[2019-07-21] MEDS: HEPARIN NA (PORCINE) 5,000 UNITS/ML 1ML VIAL SQ SCH ×3 (06:02→21:59)
[2019-07-21] MEDS: INSULIN SLIDING SCALE (NOVOLOG) 1 VIAL SQ SCH ×4 (06:05→22:09)
[2019-07-21] MEDS: SODIUM CHLORIDE 1,000 ML IV SCH ×2 (06:13→15:46)
[2019-07-21 07:15] LABS: BASO % 0.5 % (0-2.0); HEMOGLOBIN 14.7 GM/dL (11.7-16.9); LYMPH % 19.5 % (8-40); MCH 31.4 pg (25.7-33.7); MCHC 34.2 g/dl (32.0-35.9); MEAN CELL VOLUME 91.7 fl (80-96); MEAN PLT VOLUME 10.1 fl (7.5-11.1); PLATELET COUNT 152 K/MM3 (134-434); RBC 4.69 M/mm3 (4.00-5.60); RDW 13.3 % (11.9-15.9); WHITE BLOOD COUNT 8.4 K/mm3 (4.0-10.0)
[2019-07-21] MEDS ORDERED: cefTRIAXone SODIUM 1 GM VIAL ONE (08:38)
[2019-07-21] MEDS ORDERED: DEXTROSE 5%-WATER - 50 ML IVPB ONE (08:38)
[2019-07-21] MEDS: SENNOSIDES 8.6MG TABLET (FP) PO SCH ×2 (09:57→22:03)
[2019-07-21] MEDS: SERTRALINE HCL 25 MG TABLET (FP) PO SCH (09:57)
[2019-07-21] MEDS: ENALAPRIL MALEATE 5 MG TABLET (FP) PO SCH (09:58)
[2019-07-21] MEDS: CEFTRIAXONE 1 GM in DEXTROSE 5%-WATER - 50 ML IVPB SCH (09:58)
[2019-07-21] MEDS: MUPIROCIN 2% TOPICAL OINTMENT FOR DECOLONIZATION NS SCH ×2 (09:58→21:58)
[2019-07-21] MEDS ORDERED: PANTOPRAZOLE 40 MG TABLET (FP) PO SCH (10:00)
[2019-07-21] MEDS ORDERED: INSULIN (LEVEMIR) 100 UNITS/ML UNITS SQ SCH (10:55)
--- NOTE | 2019-07-21 10:55 | PN ---
Progress Note (short form) - Note Progress Note: pt seen/ examined. Mood depressed complains of pain swallowing. no distress Vital Signs Temp 98.6 F 07/21/19 06:00 Pulse 79 07/21/19 06:00 Resp 18 07/21/19 06:00 BP 126/70 07/21/19 06:00 Pulse Ox 96 07/20/19 21:00 Intake & Output 07/20/19 07/20/19 07/21/19 11:59 23:59 11:59 Intake Total 751 1319 1380 Output Total 2 Balance 749 1319 1380 Weight 143 lb Intake: IV 780 775 2741 D5-1/2Ns - 1,000 ml @ 83 751 mls/hr IV ASDIR GUERRERO Rx#: [id number] Normal Saline - 1,000 ml 749 @ 100 mls/hr IV ASDIR GUERRERO Rx#:[id number] Normal Saline - 1,000 ml 1200 @ 100 mls/hr IV ASDIR GUERRERO Rx#:[id number] IVPB 50 0 Oral 520 180 Output: Urine 2 Void 2 Other: Voiding Method Toilet Toilet Toilet # Unmeasured Voids Void 1 2 1 Bowel Movement No No Height 5 ft 8 in Body Mass Index (BMI) 21.7 Active Medications Atorvastatin Calcium (Lipitor -) 10 mg PO HS GUERRERO Last Admin: 07/20/19 22:27 Dose: 10 mg Chlorhexidine Gluconate (Hibiclens For Decolonization -) 1 applic TP HS [facility] Last Admin: 07/20/19 22:25 Dose: Not Given Enalapril Maleate (Vasotec -) 5 mg PO DAILY [facility] Last Admin: 07/21/19 09:58 Dose: 5 mg Heparin Sodium (Porcine) (Heparin -) 5,000 unit SQ TID GUERRERO Last Admin: 07/21/19 06:02 Dose: 5,000 unit Ceftriaxone Sodium 1 gm/ (Dextrose) 50 mls @ 100 mls/hr IVPB DAILY [facility]; Protocol Last Admin: 07/21/19 09:58 Dose: 100 mls/hr Sodium Chloride (Normal Saline -) 1,000 mls @ 100 mls/hr IV ASDIR GUERRERO Last Admin: 07/21/19 06:13 Dose: 100 mls/hr Insulin Aspart (Novolog Vial Sliding Scale -) 1 vial SQ ACHS [facility]; Protocol Last Admin: 10/14/19 06:05 Dose: 8 units Insulin Detemir (Levemir Vial) 15 units SQ HS [facility] Last Admin: 07/20/19 22:31 Dose: 15 units Mupirocin (Bactroban Ointment (For Decolonization) -) 1 applic NS BID [facility] Stop: 07/23/19 21:59 Last Admin: 07/21/19 09:58 Dose: Not Given Pantoprazole Sodium (Protonix -) 40 mg PO DAILY [facility] Last Admin: 07/21/19 09:58 Dose: 40 mg Senna (Senna -) 1 tab PO BID [facility] Last Admin: 07/21/19 09:57 Dose: 1 tab Sertraline HCl (Zoloft -) 25 mg PO DAILY [facility] Last Admin: 07/21/19 09:57 Dose: 25 mg CBC, BMP 07/21/19 06:00 07/20/19 06:26 Abnormal Lab Results 07/21/19 07/21/19 06:00 06:00 Monocytes % 14.0 H Triglycerides 278 H Cholesterol 248 H Total LDL Cholesterol 187 H HDL Cholesterol 31 L Physical Examination Constitutional: Yes: Calm,Comfortable Eyes: Yes: Conjunctiva Clear HENT: Yes: Other (dry) Neck: Yes: Supple Cardiovascular: Yes: Regular Rate and Rhythm Respiratory: Yes: CTA Bilaterally Gastrointestinal: Yes: Normal Bowel Sounds, Soft Edema: No Neurological: Yes: Alert Psychiatric: Yes: Alert- depressed Assessment/Plan Better Emperic abx-- consider d/c in am if afebrile and cultures -ve wbc improved Monitor bgm Pulmonary Function Technologist consult adjust Insulin endo consult. gi to follow likely need upper gi series/ egd oob - chair daily will follow Problem List - Problems (1) Mood disorder Code(s): F39 - UNSPECIFIED MOOD [AFFECTIVE] DISORDER (2) DKA (diabetic ketoacidoses) Code(s): E11.10 - TYPE 2 DIABETES MELLITUS WITH KETOACIDOSIS WITHOUT COMA (3) Adrenal adenoma Code(s): D35.00 - BENIGN NEOPLASM OF UNSPECIFIED ADRENAL GLAND
[2019-07-21] MEDS ORDERED: MAG HYDROX/AL HYDROX/SIMETH 30 ML UNIT-DOSE CUP PO PRN (11:39)
--- NOTE | 2019-07-21 11:45 | PN.GI ---
GI Progress Note Subjective: GI NOte: Dr Costello's coverage is appreciated. Dandy does c/o heartburn and has odynophagia but denies dysphagia. 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 The odynophagia arose after repeated vomiting related to his DKA. - Objective Vital Signs: Vital Signs Temperature 98.6 F 07/21/19 10:00 Pulse Rate 92 H 07/21/19 10:00 Respiratory Rate 18 07/21/19 10:00 Blood Pressure 123/69 07/21/19 10:00 O2 Sat by Pulse Oximetry (%) 96 07/20/19 21:00 Laboratory Tests 07/20/19 07/21/19 06:26 06:00 WBC 8.4 Hgb 14.7 BUN 12.5 Creatinine 0.9 Total Bilirubin 0.6 AST 9 L ALT 13 Alkaline Phosphatase 70 Constitutional: Calm ...Auscultate: Yes: Normoactive Bowel Sounds ...Palpate: Yes: Soft, Other (nontender) Labs: CBC, BMP 07/21/19 06:00 07/20/19 06:26 INR, PTT INR 0.92 (0.83-1.09) 07/19/19 07:05 Assessment/Plan Assessment: - The CT finding suggests a Guthrie's stricture so I have discussed doing an EGD with biopsies and possible dilation with Dandy. I informed him of the potential for such complications as perforation and hemorrhage. He has signed an informed consent - colon cancer - Personal h/o colon polyps Plan: -- EGD and possible dilation has been scheduled for 07/23. Pantoprazole BID and Mylanta have been ordered in the interim -- I also informed Dandy that he is overdue for colon cancer screening given his brother's history. I have given him my business card so that he can arrange a visit after discharge to set up a colonoscopy Problem List - Problems (1) Abnormal CT scan, esophagus Code(s): R93.3 - ABNORMAL FINDINGS ON DX IMAGING OF PRT DIGESTIVE TRACT (2) Odynophagia Code(s): R13.10 - DYSPHAGIA, UNSPECIFIED (3) GERD (gastroesophageal reflux disease) Code(s): K21.9 - GASTRO-ESOPHAGEAL REFLUX DISEASE WITHOUT ESOPHAGITIS (4) Family history of colon cancer Code(s): Z80.0 - FAMILY HISTORY OF MALIGNANT NEOPLASM OF DIGESTIVE ORGANS (5) Personal history of colonic polyps Code(s): Z86.010 - PERSONAL HISTORY OF COLONIC POLYPS (6) Cholelithiasis Code(s): K80.20 - CALCULUS OF GALLBLADDER W/O CHOLECYSTITIS W/O OBSTRUCTION (7) DKA (diabetic ketoacidoses) Code(s): E11.10 - TYPE 2 DIABETES MELLITUS WITH KETOACIDOSIS WITHOUT COMA (8) Esophagitis Code(s): K20.9 - ESOPHAGITIS, UNSPECIFIED
[2019-07-21] MEDS ORDERED: PT OWN MED DRAWER 7, Y5N ONE (20:55)
[2019-07-21] MEDS: CHLORHEXIDINE GLUCONATE 4% CLEANSER FOR DECOLONIZATION TP SCH (21:59)
[2019-07-21] MEDS: ATORVASTATIN CA 10 MG TABLET (FP) PO SCH (21:59)
[2019-07-21] MEDS: PANTOPRAZOLE 40 MG TABLET (FP) PO SCH (22:02)
[2019-07-22] MEDS: SODIUM CHLORIDE 1,000 ML IV SCH ×2 (06:05→17:08)
[2019-07-22] MEDS: HEPARIN NA (PORCINE) 5,000 UNITS/ML 1ML VIAL SQ SCH ×3 (06:07→21:38)
[2019-07-22] MEDS: INSULIN SLIDING SCALE (NOVOLOG) 1 VIAL SQ SCH ×4 (06:08→21:38)
[2019-07-22] MEDS ORDERED: DEXTROSE 5%-WATER - 50 ML IVPB ONE (09:33)
[2019-07-22] MEDS ORDERED: cefTRIAXone SODIUM 1 GM VIAL ONE (09:33)
[2019-07-22] MEDS: SENNOSIDES 8.6MG TABLET (FP) PO SCH ×2 (09:42→21:37)
[2019-07-22] MEDS: MUPIROCIN 2% TOPICAL OINTMENT FOR DECOLONIZATION NS SCH ×2 (09:42→21:38)
[2019-07-22] MEDS: CEFTRIAXONE 1 GM in DEXTROSE 5%-WATER - 50 ML IVPB SCH (09:42)
[2019-07-22] MEDS: SERTRALINE HCL 25 MG TABLET (FP) PO SCH (09:42)
[2019-07-22] MEDS: PANTOPRAZOLE 40 MG TABLET (FP) PO SCH ×2 (09:42→21:38)
[2019-07-22] MEDS ORDERED: PT OWN MED DRAWER 7, Y5N ONE (09:51)
[2019-07-22] MEDS: ENALAPRIL MALEATE 5 MG TABLET (FP) PO SCH (09:54)
--- NOTE | 2019-07-22 13:08 | PN ---
Progress Note (short form) - Note Progress Note: Events noted c /o burning sensation when he eats No abd pain Has watery stools Vital Signs - 24 hr 07/21/19 07/21/19 07/21/19 15:44 20:27 21:00 Temperature 97.5 F L 98.2 F Pulse Rate 96 H 73 Respiratory 20 18 18 Rate Blood Pressure 105/65 123/71 O2 Sat by Pulse 97 Oximetry (%) 07/21/19 07/22/19 07/22/19 22:00 06:00 08:40 Temperature 98.5 F 98.6 F 99 F Pulse Rate 72 67 83 Respiratory 18 18 18 Rate Blood Pressure 118/68 113/69 108/66 O2 Sat by Pulse Oximetry (%) Current Medications Generic Name Dose Route Start Last Admin Trade Name Freq PRN Reason Stop Dose Admin Al Hydroxide/Mg Hydroxide 30 ml 07/21/19 11:39 Mylanta Oral Suspension - PO Q6H PRN DYSPEPSIA Atorvastatin Calcium 10 mg 07/20/19 22:00 07/21/19 21:59 Lipitor - PO 10 mg HS GUERRERO Administration Chlorhexidine Gluconate 1 applic 07/20/19 22:00 07/21/19 21:59 Hibiclens For Decolonization - TP Not Given HS GUERRERO Enalapril Maleate 5 mg 07/20/19 11:45 07/22/19 09:54 Vasotec - PO 5 mg DAILY GUERRERO Administration Heparin Sodium (Porcine) 5,000 unit 07/20/19 22:00 07/22/19 06:07 Heparin - SQ 5,000 unit TID GUERRERO Administration Ceftriaxone Sodium 1 gm/ 50 mls @ 100 mls/hr 07/21/19 10:00 07/22/19 09:42 Dextrose IVPB 100 mls/hr DAILY GUERRERO Administration Protocol Sodium Chloride 1,000 mls @ 100 mls/hr 07/20/19 15:28 07/22/19 06:05 Normal Saline - IV 100 mls/hr ASDIR GUERRERO Administration Insulin Aspart 1 vial 07/20/19 16:30 07/22/19 11:30 Novolog Vial Sliding Scale - SQ 4 units ACHS GUERRERO Administration Protocol Insulin Detemir 20 units 07/21/19 10:55 07/21/19 22:10 Levemir Vial SQ 20 units HS GUERRERO Administration Mupirocin 1 applic 07/20/19 22:00 07/22/19 09:42 Bactroban Ointment (For Decolonization) - NS 07/23/19 21:59 Not Given BID GUERRERO Pantoprazole Sodium 40 mg 07/21/19 22:00 07/22/19 09:42 Protonix - PO 40 mg BID GUERRERO Administration Senna 1 tab 07/20/19 22:00 07/22/19 09:42 Senna - PO 1 tab BID GUERRERO Administration Sertraline HCl 25 mg 07/20/19 18:00 07/22/19 09:42 Zoloft - PO 25 mg DAILY GUERRERO Administration Laboratory Results - last 24 hr 07/21/19 07/21/19 07/22/19 16:36 22:08 06:05 POC Glucometer 287 322 152 07/22/19 11:29 POC Glucometer 228 Microbiology 07/18/19 14:15 Blood Culture - Preliminary Blood - Peripheral Venous NO GROWTH OBTAINED AFTER 72 HOURS, INCUBATION TO CONTINUE FOR 2 DAYS. 07/18/19 14:15 Blood Culture - Preliminary Blood - Peripheral Venous NO GROWTH OBTAINED AFTER 72 HOURS, INCUBATION TO CONTINUE FOR 2 DAYS. Physical Examination Constitutional: Yes: Calm,Comfortable Eyes: Yes: Conjunctiva Clear HENT: Yes: Other (dry) Neck: Yes: Supple Cardiovascular: Yes: Regular Rate and Rhythm Respiratory: Yes: CTA Bilaterally Gastrointestinal: Yes: Normal Bowel Sounds, Soft Edema: No Neurological: Yes: Alert Psychiatric: Yes: Alert- depressed Assessment/Plan Better Emperic abx-- dc antibiotics-- all cultures negative wbc improved Monitor bgm Range Master consult adjust Insulin-->increased endo consult. EGD tomorrow oob - chair daily
[2019-07-22] MEDS ORDERED: INSULIN (LEVEMIR) 100 UNITS/ML UNITS SQ SCH (13:12)
--- NOTE | 2019-07-22 16:27 | PN.GI ---
GI Progress Note Subjective: GI NOte: Continues to have odynophagia and heartburn but did eat pancakes today. - Objective Vital Signs: Vital Signs Temperature 97.8 F 07/22/19 15:13 Pulse Rate 65 07/22/19 15:13 Respiratory Rate 20 07/22/19 15:13 Blood Pressure 114/72 07/22/19 15:13 O2 Sat by Pulse Oximetry (%) 97 07/21/19 21:00 Laboratory Tests 07/20/19 07/21/19 07/21/19 22:31 06:05 11:27 POC Glucometer 290 310 320 07/21/19 07/21/19 16:36 22:08 POC Glucometer 287 322 Constitutional: Calm ...Auscultate: Yes: Normoactive Bowel Sounds ...Palpate: Yes: Soft, Other (nontender) Labs: CBC, BMP 07/21/19 06:00 07/20/19 06:26 INR, PTT INR 0.92 (0.83-1.09) 07/19/19 07:05 Assessment/Plan Assessment: - CT finding suggests a Guthrie's stricture - FH colon cancer - Personal h/o colon polyps Plan: -- EGD and possible dilation has been scheduled for tomorrow. -- Continue Pantoprazole BID and Mylanta have been ordered in the interim -- I also informed Dandy that he is overdue for colon cancer screening given his brother's history. I have given him my business card so that he can arrange a visit after discharge to set up a colonoscopy Problem List - Problems (1) Abnormal CT scan, esophagus Code(s): R93.3 - ABNORMAL FINDINGS ON DX IMAGING OF PRT DIGESTIVE TRACT (2) Odynophagia Code(s): R13.10 - DYSPHAGIA, UNSPECIFIED (3) GERD (gastroesophageal reflux disease) Code(s): K21.9 - GASTRO-ESOPHAGEAL REFLUX DISEASE WITHOUT ESOPHAGITIS (4) Family history of colon cancer Code(s): Z80.0 - FAMILY HISTORY OF MALIGNANT NEOPLASM OF DIGESTIVE ORGANS (5) Personal history of colonic polyps Code(s): Z86.010 - PERSONAL HISTORY OF COLONIC POLYPS (6) Cholelithiasis Code(s): K80.20 - CALCULUS OF GALLBLADDER W/O CHOLECYSTITIS W/O OBSTRUCTION (7) DKA (diabetic ketoacidoses) Code(s): E11.10 - TYPE 2 DIABETES MELLITUS WITH KETOACIDOSIS WITHOUT COMA (8) Esophagitis Code(s): K20.9 - ESOPHAGITIS, UNSPECIFIED
--- NOTE | 2019-07-22 19:04 | CON.PSL ---
Psychology Consult Consult Specialty:: Clinical Psychology History Provided By: Patient Limitations to Obtaining History: No Limitations Current Medications: Active Medications Al Hydroxide/Mg Hydroxide (Mylanta Oral Suspension -) 30 ml PO Q6H PRN PRN Reason: DYSPEPSIA Atorvastatin Calcium (Lipitor -) 10 mg PO HS [facility] Last Admin: 07/21/19 21:59 Dose: 10 mg Chlorhexidine Gluconate (Hibiclens For Decolonization -) 1 applic TP HS [facility] Last Admin: 07/21/19 21:59 Dose: Not Given Enalapril Maleate (Vasotec -) 5 mg PO DAILY [facility] Last Admin: 07/22/19 09:54 Dose: 5 mg Heparin Sodium (Porcine) (Heparin -) 5,000 unit SQ TID [facility] Last Admin: 07/22/19 15:02 Dose: 5,000 unit Sodium Chloride (Normal Saline -) 1,000 mls @ 100 mls/hr IV ASDIR [facility] Last Admin: 07/22/19 17:08 Dose: 100 mls/hr Insulin Aspart (Novolog Vial Sliding Scale -) 1 vial SQ [facility]; Protocol Last Admin: 07/22/19 17:06 Dose: 6 units Insulin Detemir (Levemir Vial) 22 units SQ [facility] Mupirocin (Bactroban Ointment (For Decolonization) -) 1 applic NS BID [facility] Stop: 07/23/19 21:59 Last Admin: 07/22/19 09:42 Dose: Not Given Pantoprazole Sodium (Protonix -) 40 mg PO BID [facility] Last Admin: 07/22/19 09:42 Dose: 40 mg Senna (Senna -) 1 tab PO BID [facility] Last Admin: 07/22/19 09:42 Dose: 1 tab Sertraline HCl (Zoloft -) 25 mg PO DAILY [facility] Last Admin: 07/22/19 09:42 Dose: 25 mg Allergies: Allergies Allergy/AdvReac Type Severity Reaction Status Date / Time No Known Allergies Allergy Verified 07/18/19 11:20 Does patient have pain?: Yes Pain Location Body Site: Esophagus Pain Description: Burning Pain Intensity: 8 Hx Alcohol Use: No Hx Substance Use: Yes Substance Use Type: Marijuana Hx Substance Use Treatment: No Current Medical Exam-Psy Attention: Alert Orientation: Time, Person, Place Immediate Term Memory: 12/08 Expressive: Coherent Receptive: Age Appropriate Comprehension of Spoken Words Hallucinations: Absent Thought Process: Intact Depression: None Hopelessness: No Loss of Interest: No Danger to Self and Others: No Sleep: Poorly Appetite: Poor Serial Sevens Intact: Yes Repeats 3 words told earlier: 12/08 Support System: None (He appears to be a loner who does not want to bother his son in [place] nor his local family members as he says they have their own families to attend to.) Problem List - Problem (1) Psychosomatic factor in physical condition Code(s): F54 - PSYCH & BEHAVRL FACTORS ASSOC W DISORD OR DIS CLASSD ELSWHR (2) Cigarette nicotine dependence Code(s): F17.210 - NICOTINE DEPENDENCE, CIGARETTES, UNCOMPLICATED Assessment/Plan The patient was a pleasant gentleman who was evidently suffering from spurts of severe pain. When questioned about his experience at the moment, he admitted to acid burning up his esophageal tract. He denied depression or anxiety. It may be that he is in denial. We discussed his expectations and he indicated that he is scheduled for an upper endoscopy and hopes to be discharged thereafter. The patient was aware of his final finisher's name and was able to explain what led him to the ER. It also is noteworthy that he is a smoker and smoking cessation would be of value as that may aggravate his pain conditions (i.e., Nicotine). A brief pain management intervention was described to him and he indicated that he was familiar with those approaches. He will be followed while he remains in the hospital.
[2019-07-22] MEDS: CHLORHEXIDINE GLUCONATE 4% CLEANSER FOR DECOLONIZATION TP SCH (21:38)
[2019-07-22] MEDS: ATORVASTATIN CA 10 MG TABLET (FP) PO SCH (21:38)
--- NOTE | 2019-07-23 00:57 | CONSULT ---
Consult Consult Specialty:: endocrine Referred by:: dr.pushpinder chiang Reason for Consultation:: diabetes mellitus type 2 - History of Present Illness Chief Complaint: high sugars non compliant with therapy History of Present Illness: 69yo M hx T2DM on glipizide non compliant , diabetic foot ulcers s/p multiple surgeries, smoker, s/p appendectomy. admitted for abdominal pain possible r/o SBO. has had fatigue and 30lb weight loss , constipation and, nausea, NBNB emesis, worsening periumbilical abdominal pain.he admits non compliant with medication or checking blood sugars. 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 History of Recent Travel: No Home Medications - Allergies Allergies/Adverse Reactions: Allergies Allergy/AdvReac Type Severity Reaction Status Date / Time No Known Allergies Allergy Verified 07/18/19 11:20 - Home Medications Home Medications: Ambulatory Orders Atorvastatin Ca [Lipitor] 10 mg PO HS 07/18/19 Enalapril Maleate 2.5 mg PO DAILY 07/18/19 Gemfibrozil [Lopid] 600 mg PO DAILY 07/18/19 Glipizide [Glipizide Xl] 5 mg PO DAILY 07/18/19 Pantoprazole Sodium 40 mg PO DAILY 07/18/19 Review of Systems - Review of Systems Constitutional: reports: Lethargy, Weakness Eyes: reports: Blurred Vision HENT: reports: No Symptoms Neck: reports: No Symptoms Cardiovascular: reports: Shortness of Breath Respiratory: reports: Exercise Intolerance Gastrointestinal: reports: Bloating, Constipation Genitourinary: reports: Frequency, Urgency Breasts: reports: No Symptoms Reported Musculoskeletal: reports: Muscle Pain, Muscle Cramps, Muscle Weakness Neurological: reports: Weakness Endocrine: reports: Unexplained Weight Loss Physical Exam Vital Signs: Vital Signs Temperature 98.4 F 07/22/19 22:00 Pulse Rate 70 07/22/19 22:00 Respiratory Rate 18 07/22/19 22:00 Blood Pressure 117/69 07/22/19 22:00 O2 Sat by Pulse Oximetry (%) 97 07/22/19 21:00 Constitutional: Yes: Calm Eyes: Yes: EOM Intact HENT: Yes: Normocephalic Neck: Yes: Trachea Midline Cardiovascular: Yes: Regular Rate and Rhythm Respiratory: Yes: CTA Bilaterally Gastrointestinal: Yes: Normal Bowel Sounds ...Rectal Exam: Yes: Deferred Renal/: Yes: WNL Breast(s): Yes: WNL Musculoskeletal: Yes: Muscle Pain, Muscle Weakness Neurological: Yes: Alert, Oriented Labs: CBC, BMP 07/21/19 06:00 07/20/19 06:26 Problem List - Problems (1) Type 2 diabetes mellitus with foot ulcer Code(s): E11.621 - TYPE 2 DIABETES MELLITUS WITH FOOT ULCER; L97.509 - NON- PRESSURE CHRONIC ULCER OTH PRT UNSP FOOT W UNSP SEVERITY (2) Abnormal CT scan, esophagus Code(s): R93.3 - ABNORMAL FINDINGS ON DX IMAGING OF PRT DIGESTIVE TRACT (3) Cholelithiasis Code(s): K80.20 - CALCULUS OF GALLBLADDER W/O CHOLECYSTITIS W/O OBSTRUCTION (4) Esophagitis Code(s): K20.9 - ESOPHAGITIS, UNSPECIFIED (5) Family history of colon cancer Code(s): Z80.0 - FAMILY HISTORY OF MALIGNANT NEOPLASM OF DIGESTIVE ORGANS Assessment/Plan Current Active Problems Abnormal CT scan, esophagus (Acute) Adrenal adenoma (Acute) Cholelithiasis (Acute) Cigarette nicotine dependence (Acute) DKA (diabetic ketoacidoses) (Acute) Esophagitis (Acute) Family history of colon cancer (Acute) GERD (gastroesophageal reflux disease) (Acute) Mood disorder (Acute) Odynophagia (Acute) Personal history of colonic polyps (Acute) Psychosomatic factor in physical condition (Acute) Laboratory Results - last 24 hr 07/22/19 07/22/19 07/22/19 06:05 11:29 17:06 POC Glucometer 152 228 299 07/22/19 21:35 POC Glucometer 394 Laboratory Tests 07/18/19 07/18/19 07/19/19 12:54 12:54 07:05 Sodium 124 L Potassium 6.3 H* Chloride 93 L Carbon Dioxide 11 L Anion Gap 20 H Creatinine 1.9 H Est GFR (CKD-EPI)AfAm 40.78 Est GFR (CKD-EPI)NonAf 35.19 Random Glucose 610 H* Hemoglobin A1c % 14.0 H Lactic Acid 2.6 H* plan: bgm qid novolog scale levemir 20 units hs levemir 15 units am diet nutrition consult
[2019-07-23] MEDS: INSULIN SLIDING SCALE (NOVOLOG) 1 VIAL SQ SCH ×4 (06:02→22:28)
[2019-07-23] MEDS: INSULIN (LEVEMIR) 100 UNITS/ML UNITS SQ SCH ×2 (06:02→22:26)
[2019-07-23] MEDS: HEPARIN NA (PORCINE) 5,000 UNITS/ML 1ML VIAL SQ SCH ×2 (06:02→13:09)
[2019-07-23 07:31] LABS: HEMATOCRIT 36.8 % (35.4-49); HEMOGLOBIN 12.9 GM/dL (11.7-16.9); MCH 31.6 pg (25.7-33.7); MCHC 35.1 g/dl (32.0-35.9); MEAN CELL VOLUME 89.9 fl (80-96); MEAN PLT VOLUME 10.1 fl (7.5-11.1); PLATELET COUNT 171 K/MM3 (134-434); RBC 4.09 M/mm3 (4.00-5.60); RDW 13.3 % (11.9-15.9); WHITE BLOOD COUNT 7.2 K/mm3 (4.0-10.0)
[2019-07-23 07:49] LABS: ALBUMIN 2.6 g/dl (3.4-5.0); BILIRUBIN,TOTAL 0.5 mg/dL (0.2-1); BLOOD UREA NITROGEN 9.2 mg/dL (7-18); CALCIUM 8.4 mg/dL (8.5-10.1); CREATININE 0.7 mg/dL (0.55-1.3); TOT PROT 5.1 g/dl (6.4-8.2)
[2019-07-23] MEDS: MUPIROCIN 2% TOPICAL OINTMENT FOR DECOLONIZATION NS SCH (09:16)
[2019-07-23] MEDS: PANTOPRAZOLE 40 MG TABLET (FP) PO SCH ×2 (09:19→22:27)
[2019-07-23] MEDS: SENNOSIDES 8.6MG TABLET (FP) PO SCH ×2 (09:19→22:27)
[2019-07-23] MEDS: SERTRALINE HCL 25 MG TABLET (FP) PO SCH (09:22)
[2019-07-23] MEDS: ENALAPRIL MALEATE 5 MG TABLET (FP) PO SCH (09:22)
--- NOTE | 2019-07-23 13:16 | PN ---
Progress Note (short form) - Note Progress Note: GI Procedure NOte: Please see scanned EGD report. Severe reflux esophagitis involving the distal 2/3 of the esophagus was noted. Biopsies and brushings were taken to exclude CMV and candidal esophagitis and Guthrie's esophagus. He does have a hiatal hernia and a patent Schatzki ring that suggest chronic GERD. Antral gastritis was also noted. Continue PPI BID and antacids prn. Problem List - Problems (1) Abnormal CT scan, esophagus Code(s): R93.3 - ABNORMAL FINDINGS ON DX IMAGING OF PRT DIGESTIVE TRACT (2) Odynophagia Code(s): R13.10 - DYSPHAGIA, UNSPECIFIED (3) GERD (gastroesophageal reflux disease) Code(s): K21.9 - GASTRO-ESOPHAGEAL REFLUX DISEASE WITHOUT ESOPHAGITIS (4) Family history of colon cancer Code(s): Z80.0 - FAMILY HISTORY OF MALIGNANT NEOPLASM OF DIGESTIVE ORGANS (5) Personal history of colonic polyps Code(s): Z86.010 - PERSONAL HISTORY OF COLONIC POLYPS (6) Cholelithiasis Code(s): K80.20 - CALCULUS OF GALLBLADDER W/O CHOLECYSTITIS W/O OBSTRUCTION (7) DKA (diabetic ketoacidoses) Code(s): E11.10 - TYPE 2 DIABETES MELLITUS WITH KETOACIDOSIS WITHOUT COMA (8) Esophagitis Code(s): K20.9 - ESOPHAGITIS, UNSPECIFIED
--- NOTE | 2019-07-23 13:16 | PN ---
Progress Note (short form) - Note Progress Note: Events noted c /o burning sensation when he eats No abd pain kept NPO for EGD Vital Signs - 24 hr 07/22/19 07/22/19 07/22/19 15:13 19:42 21:00 Temperature 97.8 F 98.9 F Pulse Rate 65 77 Respiratory 20 18 Rate Blood Pressure 114/72 116/65 O2 Sat by Pulse 97 Oximetry (%) 07/22/19 07/23/19 07/23/19 22:00 06:36 09:00 Temperature 98.4 F 98.3 F Pulse Rate 70 69 Respiratory 18 18 Rate Blood Pressure 117/69 128/71 O2 Sat by Pulse 97 Oximetry (%) 07/23/19 10:00 Temperature 98.3 F Pulse Rate 63 Respiratory 18 Rate Blood Pressure 124/75 O2 Sat by Pulse Oximetry (%) Current Medications Generic Name Dose Route Start Last Admin Trade Name Freq PRN Reason Stop Dose Admin Al Hydroxide/Mg Hydroxide 30 ml 07/21/19 11:39 07/22/19 23:08 Mylanta Oral Suspension - PO 30 ml Q6H PRN Administration DYSPEPSIA Atorvastatin Calcium 10 mg 07/20/19 22:00 07/22/19 21:38 Lipitor - PO 10 mg HS [facility] Administration Chlorhexidine Gluconate 1 applic 07/20/19 22:00 07/22/19 21:38 Hibiclens For Decolonization - TP Not Given HS [facility] Enalapril Maleate 5 mg 07/20/19 11:45 07/23/19 09:22 Vasotec - PO Not Given DAILY [facility] Heparin Sodium (Porcine) 5,000 unit 07/20/19 22:00 07/23/19 13:09 Heparin - SQ Not Given TID [facility] Sodium Chloride 1,000 mls @ 100 mls/hr 07/20/19 15:28 07/22/19 17:08 Normal Saline - IV 100 mls/hr ASDIR [facility] Administration Insulin Aspart 1 vial 07/23/19 07:00 07/23/19 11:17 Novolog Vial Sliding Scale - SQ Not Given ACHS [facility] Protocol Insulin Detemir 20 units 07/23/19 22:00 Levemir Vial SQ HS [facility] Insulin Detemir 15 units 07/23/19 07:00 07/23/19 06:02 Levemir Vial SQ Not Given AM [facility] Mupirocin 1 applic 07/20/19 22:00 07/23/19 09:16 Bactroban Ointment (For Decolonization) - NS 07/23/19 21:59 Not Given BID [facility] Pantoprazole Sodium 40 mg 07/21/19 22:00 07/23/19 09:19 Protonix - PO Not Given BID [facility] Senna 1 tab 07/20/19 22:00 07/23/19 09:19 Senna - PO Not Given BID [facility] Sertraline HCl 25 mg 07/20/19 18:00 07/23/19 09:22 Zoloft - PO Not Given DAILY [facility] Laboratory Results - last 24 hr 07/22/19 07/22/19 07/23/19 17:06 21:35 05:53 WBC RBC Hgb Hct MCV MCH MCHC RDW Plt Count MPV Sodium Potassium Chloride Carbon Dioxide Anion Gap BUN Creatinine Est GFR (CKD-EPI)AfAm Est GFR (CKD-EPI)NonAf POC Glucometer 299 394 216 Random Glucose Calcium Total Bilirubin AST ALT Alkaline Phosphatase Total Protein Albumin 07/23/19 07/23/19 07/23/19 06:35 06:35 11:10 WBC 7.2 RBC 4.09 Hgb 12.9 Hct 36.8 MCV 89.9 MCH 31.6 MCHC 35.1 RDW 13.3 Plt Count 171 MPV 10.1 Sodium 143 Potassium 3.0 L Chloride 104 Carbon Dioxide 32 Anion Gap 7 L BUN 9.2 Creatinine 0.7 Est GFR (CKD-EPI)AfAm 111.60 Est GFR (CKD-EPI)NonAf 96.29 POC Glucometer 178 Random Glucose 207 H Calcium 8.4 L Total Bilirubin 0.5 AST 11 L ALT 16 Alkaline Phosphatase 69 Total Protein 5.1 L Albumin 2.6 L Physical Examination Constitutional: Yes: Calm,Comfortable Eyes: Yes: Conjunctiva Clear HENT: Yes: Other (dry) Neck: Yes: Supple Cardiovascular: Yes: Regular Rate and Rhythm Respiratory: Yes: CTA Bilaterally Gastrointestinal: Yes: Normal Bowel Sounds, Soft Edema: No Neurological: Yes: Alert Psychiatric: Yes: Alert- depressed Assessment/Plan Better Emperic abx-- dc antibiotics-- all cultures negative wbc improved Monitor bgm [employer] Assembler consult adjust Insulin-->increased endo consult. EGD today oob - chair daily
[2019-07-23] MEDS ORDERED: PT OWN MED DRAWER 7, Y5N ONE (13:56)
[2019-07-23] MEDS: KCL 10 MEQ IVPB 10 MEQ/100 ML INFUS.BAG IVPB SCH ×2 (14:27→15:37)
[2019-07-23] MEDS: SODIUM CHLORIDE 1,000 ML IV SCH (14:27)
[2019-07-23] MEDS ORDERED: INSULIN (NOVOLOG) ASPART 100 UNITS/ML 10ML VIAL ONE (16:19)
[2019-07-23] MEDS: CHLORHEXIDINE GLUCONATE 4% CLEANSER FOR DECOLONIZATION TP SCH (22:26)
[2019-07-23] MEDS: ATORVASTATIN CA 10 MG TABLET (FP) PO SCH (22:27)
[2019-07-24] MEDS: SODIUM CHLORIDE 1,000 ML IV SCH (01:29)
[2019-07-24] MEDS: INSULIN (LEVEMIR) 100 UNITS/ML UNITS SQ SCH ×2 (06:27→21:19)
[2019-07-24] MEDS: INSULIN SLIDING SCALE (NOVOLOG) 1 VIAL SQ SCH ×4 (06:28→21:19)
[2019-07-24] MEDS: SERTRALINE HCL 25 MG TABLET (FP) PO SCH (09:35)
[2019-07-24] MEDS: SENNOSIDES 8.6MG TABLET (FP) PO SCH ×2 (09:35→21:18)
[2019-07-24] MEDS: PANTOPRAZOLE 40 MG TABLET (FP) PO SCH ×2 (09:35→21:18)
[2019-07-24 09:49] LABS: BLOOD UREA NITROGEN 8.7 mg/dL (7-18); CALCIUM 8.5 mg/dL (8.5-10.1); CREATININE 0.7 mg/dL (0.55-1.3); POTASSIUM 3.1 mmol/L (3.5-5.1)
[2019-07-24] MEDS ORDERED: POTASSIUM CHLORIDE TABS 20 MEQ TABLET.ER (FP) PO ONE (10:35)
[2019-07-24] MEDS ORDERED: PT OWN MED DRAWER 7, Y5N ONE (11:13)
[2019-07-24] MEDS: ENALAPRIL MALEATE 5 MG TABLET (FP) PO SCH (12:03)
--- NOTE | 2019-07-24 12:45 | PN ---
Progress Note (short form) - Note Progress Note: Events noted c /o burning sensation when he eats- but better today EGD findings noted No abd pain Vital Signs - 24 hr 07/23/19 07/23/19 07/23/19 13:16 13:31 13:53 Temperature 98.4 F Pulse Rate 65 62 68 Respiratory 20 20 18 Rate Blood Pressure 119/61 129/67 122/65 O2 Sat by Pulse 98 98 99 Oximetry (%) 07/23/19 07/23/19 07/23/19 13:59 14:24 17:31 Temperature 98.4 F 98.2 F 97.4 F L Pulse Rate 68 73 83 Respiratory 18 20 20 Rate Blood Pressure 122/65 141/78 140/78 O2 Sat by Pulse 98 100 Oximetry (%) 07/23/19 07/23/19 07/24/19 21:00 22:00 06:44 Temperature 98.1 F 98.7 F Pulse Rate 66 57 L Respiratory 20 20 20 Rate Blood Pressure 134/89 106/58 L O2 Sat by Pulse 100 Oximetry (%) 07/24/19 10:00 Temperature 98.7 F Pulse Rate 74 Respiratory 20 Rate Blood Pressure 106/66 O2 Sat by Pulse Oximetry (%) Current Medications Generic Name Dose Route Start Last Admin Trade Name Freq PRN Reason Stop Dose Admin Al Hydroxide/Mg Hydroxide 30 ml 07/21/19 11:39 07/22/19 23:08 Mylanta Oral Suspension - PO 30 ml Q6H PRN Administration DYSPEPSIA Atorvastatin Calcium 10 mg 07/20/19 22:00 07/23/19 22:27 Lipitor - PO 10 mg HS [facility] Administration Chlorhexidine Gluconate 1 applic 07/20/19 22:00 07/23/19 22:26 Hibiclens For Decolonization - TP Not Given HS [facility] Enalapril Maleate 5 mg 07/20/19 11:45 07/24/19 12:03 Vasotec - PO 5 mg DAILY [facility] Administration Heparin Sodium (Porcine) 5,000 unit 07/20/19 22:00 07/23/19 13:09 Heparin - SQ Not Given TID [facility] Insulin Aspart 1 vial 07/23/19 07:00 07/24/19 12:03 Novolog Vial Sliding Scale - SQ 3 units ACHS [facility] Administration Protocol Insulin Detemir 20 units 07/23/19 22:00 07/23/19 22:26 Levemir Vial SQ 20 units HS [facility] Administration Insulin Detemir 15 units 07/23/19 07:00 07/24/19 06:27 Levemir Vial SQ 15 units AM [facility] Administration Pantoprazole Sodium 40 mg 07/21/19 22:00 07/24/19 09:35 Protonix - PO 40 mg BID [facility] Administration Senna 1 tab 07/20/19 22:00 07/24/19 09:35 Senna - PO Not Given BID [facility] Sertraline HCl 25 mg 07/20/19 18:00 07/24/19 09:35 Zoloft - PO 25 mg DAILY [facility] Administration Laboratory Results - last 24 hr 07/23/19 07/23/19 07/24/19 16:23 21:28 05:52 Sodium Potassium Chloride Carbon Dioxide Anion Gap BUN Creatinine Est GFR (CKD-EPI)AfAm Est GFR (CKD-EPI)NonAf POC Glucometer 281 280 157 Random Glucose Calcium 07/24/19 07/24/19 08:45 11:30 Sodium 142 Potassium 3.1 L Chloride 104 Carbon Dioxide 32 Anion Gap 7 L BUN 8.7 Creatinine 0.7 Est GFR (CKD-EPI)AfAm 111.60 Est GFR (CKD-EPI)NonAf 96.29 POC Glucometer 185 Random Glucose 166 H Calcium 8.5 Physical Examination Constitutional: Yes: Calm,Comfortable Eyes: Yes: Conjunctiva Clear HENT: Yes: Other (dry) Neck: Yes: Supple Cardiovascular: Yes: Regular Rate and Rhythm Respiratory: Yes: CTA Bilaterally Gastrointestinal: Yes: Normal Bowel Sounds, Soft Edema: No Neurological: Yes: Alert Psychiatric: Yes: Alert- depressed Assessment/Plan Better Emperic abx-- dc antibiotics-- all cultures negative wbc improved Monitor bgm [employer] Hand consult adjust Insulin-->increased endo consult noted replace potassium dc iv fluids EGD -->severe reflux esophagitis oob - chair daily depressed--dc planning-- spoke with case management-- >needs [facility] , social media coordinator to come to his home, psychological services as well will increase Zoloft
[2019-07-24] MEDS ORDERED: SERTRALINE HCL 50 MG TABLET (FP) PO SCH (12:47)
[2019-07-24] MEDS: HEPARIN NA (PORCINE) 5,000 UNITS/ML 1ML VIAL SQ SCH ×2 (14:38→21:18)
[2019-07-24] MEDS: CHLORHEXIDINE GLUCONATE 4% CLEANSER FOR DECOLONIZATION TP SCH (21:18)
[2019-07-24] MEDS: ATORVASTATIN CA 10 MG TABLET (FP) PO SCH (21:18)
[2019-07-25] MEDS: HEPARIN NA (PORCINE) 5,000 UNITS/ML 1ML VIAL SQ SCH ×2 (06:07→14:48)
[2019-07-25] MEDS: INSULIN SLIDING SCALE (NOVOLOG) 1 VIAL SQ SCH ×2 (06:08→12:17)
[2019-07-25] MEDS ORDERED: INSULIN (NOVOLOG) ASPART 100 UNITS/ML 10ML VIAL ONE ×2 (06:37→12:21)
[2019-07-25 09:06] VITALS: PULSE 81
[2019-07-25] MEDS: INSULIN (LEVEMIR) 100 UNITS/ML UNITS SQ SCH (10:22)
[2019-07-25] MEDS: SENNOSIDES 8.6MG TABLET (FP) PO SCH (10:23)
[2019-07-25] MEDS: ENALAPRIL MALEATE 5 MG TABLET (FP) PO SCH (10:23)
[2019-07-25] MEDS: PANTOPRAZOLE 40 MG TABLET (FP) PO SCH (10:23)
[2019-07-25 13:12] VITALS: BP 145/80; TEMP 99
--- NOTE | 2019-07-25 13:21 | DS ---
Physical Examination Vital Signs: Vital Signs Temperature 99.0 F 07/25/19 13:10 Pulse Rate 81 07/25/19 13:10 Respiratory Rate 18 07/25/19 13:10 Blood Pressure 145/80 07/25/19 13:10 O2 Sat by Pulse Oximetry (%) 96 07/25/19 08:47 Findings/Remarks: feels much better no complains mood also better- cheerful today looking forward to going home Diabetic teaching provided-- Knows how to inject Insulin Constitutional: Yes: No Distress, Calm Eyes: Yes: Conjunctiva Clear Neck: Yes: Supple Cardiovascular: Yes: Regular Rate and Rhythm Respiratory: Yes: CTA Bilaterally Gastrointestinal: Yes: Soft Edema: No Neurological: Yes: Alert Psychiatric: Yes: Alert Labs: CBC, BMP 07/23/19 06:35 07/24/19 08:45 Discharge Summary Problems reviewed: Yes Reason For Visit: DIABETIC KETOACIDOSIS Current Active Problems Abnormal CT scan, esophagus (Acute) Adrenal adenoma (Acute) Cholelithiasis (Acute) Cigarette nicotine dependence (Acute) DKA (diabetic ketoacidoses) (Acute) Esophagitis (Acute) Family history of colon cancer (Acute) GERD (gastroesophageal reflux disease) (Acute) Mood disorder (Acute) Odynophagia (Acute) Personal history of colonic polyps (Acute) Psychosomatic factor in physical condition (Acute) Type 2 diabetes mellitus with foot ulcer (Acute) Hospital Course: Pt is a 69 y/o M with a significant past medical history of NIDDM, peptic ulcer disease s/p laparotomy, and skin CA who send to [facility] due to 4 days of vomiting, nausea, constipation, fatigue, chills, and abdominal pain. Pt was found in dka Started on insulin drip/ fluids/ admitted to icu also given abx emperically as wbc were elevated cxr -ve ct scan - abd - no acute pathology-- ? adrenal Adenoma responded well Now stable for d/c endo consult also taken Pt was also depressed -- Started on SSRI-- Mood better d/c home today Meds reconcilled-- send to pharmacy already strongly advised regular f/u f/u in office next week pt in agreement. Condition: Stable - Instructions Referrals: Irene Husain MD [Primary Care Provider] - Disposition: HOME - Home Medications Comprehensive Discharge Medication List: Ambulatory Orders Atorvastatin Ca [Lipitor] 10 mg PO HS 07/18/19 Enalapril Maleate [Vasotec -] 5 mg PO DAILY #30 tablet 07/24/19 Insulin Detemir [Levemir Flextouch] 10 unit SQ DAILY #1 ea 07/24/19 Insulin Detemir [Levemir Flextouch] 20 unit SQ HS #1 insuln.pen 07/24/19 Miscellaneous Medical Supply [Glucometer Device] 1 each SQ ASDIR #1 kit [employer] [Glucometer Test Strips #100] 1 each SQ ASDIR #1 box 07/24/19 Pantoprazole Sodium [Protonix -] 40 mg PO BID #60 tablet.ec 07/24/19 Pen Needle, Diabetic [Pen Needle] 1 each SQ BID #90 dis.needle 07/24/19 Sertraline HCl [Zoloft] 50 mg PO DAILY #60 tablet 07/24/19
--- NOTE | 2019-07-28 13:49 | PATH ---
Cytology Non-Gynecological Report Patient Name: CHARLOTTE MARY Med. Rec. #: [id number] /Age/Gender: 1950 (Age: 69) / M Account: [id number] Location: [facility] MED/SURG Taken: 07/23/2019 Received: 07/24/2019 Reported: 07/28/2019 Physicians: Nicholas Garcia M.D. Specimen(s) Received ESOPHAGEAL BRUSHING Clinical History Severe reflux esophagitis, odynophagia, r/o vasquez Final Diagnosis ESOPHAGEAL BRUSHING FOR CYTOLOGY: SATISFACTORY FOR EVALUATION. SQUAMOUS CELLS WITH REACTIVE CELLULAR CHANGES AND COLUMNAR CELLS IN A BACKGROUND OF MARKED ACUTE INFLAMMATION. PAS FUNGAL STAIN IS NEGATIVE. Electronically Signed Katie Maria M.D. Gross Description Received brush in approximately 20 cc of 50% alcohol. One direct smear prepared and Pap stained. One cellblock prepared.
--- NOTE | 2019-07-30 13:12 | PATH ---
Surgical Pathology Report Patient Name: CHARLOTTE MARY Med. Rec. #: [id number] /Age/Gender: 1950 (Age: 69) / M Account: [id number] Location: [facility] MED/SURG Taken: 07/23/2019 Received: 07/24/2019 Reported: 07/30/2019 Physicians: Wendy Holley M.D. Specimen(s) Received A: BX DUODENUM SECOND PORTION AND BULB B: BX ANTRUM C: BX GE JUNCTION 38 CM D: BX ESOPHAGUS 35 CM E: BX ESOPHAGUS 30 CM Clinical History Odynophagia, heartburn Postoperative diagnosis: Severe reflux esophagitis, hiatal hernia, antral gastritis Final Diagnosis A. SECOND PORTION OF BULB OF DUODENUM, BIOPSY: DUODENUM MUCOSA WITH MILD NONSPECIFIC CHRONIC DUODENITIS. NO HISTOLOGIC EVIDENCE OF INTRAEPITHELIAL LYMPHOCYTOSIS. B. ANTRUM, BIOPSY: GASTRIC MUCOSA WITH CHRONIC GASTRITIS AND REACTIVE GASTROPATHY. IMMUNOSTAIN FOR H. PYLORI IS NEGATIVE. NEGATIVE FOR INTESTINAL METAPLASIA. C. GE JUNCTION 38 CM, BIOPSY: ESOPHAGEAL MUCOSA WITH SEVERE REFLUX ESOPHAGITIS, ULCERATION, ACUTE AND CHRONIC INFLAMMATION, AND GRANULATION TISSUE FORMATION. NEGATIVE FOR INTESTINAL METAPLASIA. SEE COMMENT. D. ESOPHAGUS AT 35 CM, BIOPSY: ESOPHAGEAL MUCOSA WITH REFLUX ESOPHAGITIS AND ACUTE INFLAMMATORY EXUDATE. NEGATIVE FOR INTESTINAL METAPLASIA. SEE COMMENT. E. ESOPHAGUS 30 CM BIOPSY: ESOPHAGEAL MUCOSA WITH REFLUX ESOPHAGITIS. NEGATIVE FOR INTESTINAL METAPLASIA. Comment: Immunohistochemistry stain CMV (block C1) for cytomegalovirus is negative. PAS stain failed to reveal fungal hyphae (block D1). Immunohistochemistry stain CMV performed and interpreted at [place], [place] ([id number]). Electronically Signed Rubén Beltran M.D. Gross Description A. Received in formalin, labeled "second portion and bulb of duodenum biopsy" are 6 ferraro, irregular portions of soft tissue ranging from 0.2-0.3 cm. in greatest dimension. The specimens are submitted in toto in one cassette. B. Received in formalin, labeled "antrum biopsy" are 4 ferraro, irregular portions of soft tissue ranging from 0.3-0.5 cm. in greatest dimension. The specimens are submitted in toto in one cassette. C. Received in formalin, labeled "GE junction biopsy at 38 cm" are 3 ferraro, irregular portions of soft tissue ranging from 0.1-0.5 cm. in greatest dimension. The specimens are submitted in toto in one cassette. D. Received in formalin, labeled "esophagus at 35 cm biopsy" are 2 ferraro, irregular portions of soft tissue averaging 0.5 cm. in greatest dimension. The specimens are submitted in toto in one cassette. E. Received in formalin, labeled "esophagus at 30 cm biopsy" is a ferraro, irregular portion of soft tissue measuring 0.4 cm. in greatest dimension. The specimen is submitted in toto in one cassette. 07/24/2019 [facility]07/24/2019
== END 2019-07-25 15:32 | disposition home or self-care (01) | DRG 638 ==
LOC: JER 11:18 → JERBED 16:55 → JICU 07-19 00:27 → J7W 07-20 15:44
PROVIDERS: ADMIT Internal Medicine Pulmonary Disease; ATTEND Internal Medicine
PROC: 0DB68ZX Excision of Stomach, Via Natural or Artificial Opening Endoscopic, Diagnostic (ICD-10-PCS; 2019-07-23)
PROC: 0DB98ZX Excision of Duodenum, Via Natural or Artificial Opening Endoscopic, Diagnostic (ICD-10-PCS; principal; 2019-07-23 11:30)
DX: E11.10 Type 2 diabetes mellitus with ketoacidosis without coma (principal); E87.1 Hypo-osmolality and hyponatremia; N17.9 Acute kidney failure, unspecified; F32.9 Major depressive disorder, single episode, unspecified; K29.70 Gastritis, unspecified, without bleeding; K21.0 Gastro-esophageal reflux disease with esophagitis; F54 Psychological and behavioral factors associated with disorders or diseases classified elsewhere; K22.2 Esophageal obstruction; F39 Unspecified mood [affective] disorder; K80.20 Calculus of gallbladder without cholecystitis without obstruction; R93.3 Abnormal findings on diagnostic imaging of other parts of digestive tract; R63.4 Abnormal weight loss; K29.60 Other gastritis without bleeding; D35.00 Benign neoplasm of unspecified adrenal gland; K44.9 Diaphragmatic hernia without obstruction or gangrene; R13.10 Dysphagia, unspecified; F17.210 Nicotine dependence, cigarettes, uncomplicated; R11.2 Nausea with vomiting, unspecified; Z87.11 Personal history of peptic ulcer disease; Z85.820 Personal history of malignant melanoma of skin; Z80.0 Family history of malignant neoplasm of digestive organs; Z68.21 Body mass index [BMI] 21.0-21.9, adult
CPT/HCPCS: 36415; 71045-TC-FY; 74176-TC; 80048; 80053; 80061; 81003; 82010; 82550; 82803; 82962; 83036; 83605; 83690; 83721; 83735; 84100; 84443; 84484; 85025; 85027; 85610; 85730; 86850; 86900; 86901; 87040; 87086; 88104; 88305-TC; 93005; 93010; 99284-25; J0131; J1644; J7030